=== PATIENT | female | born 1985 | race Caucasian/White ===

== ENCOUNTER → 2017-01-08 | Outpatient (CLI) | payer OTHER ==
[~2017-01-08] MED LIST: BACTRIM DS 8001 TA1 PO; BACTROBAN2% TP; BUSPAR15 MG PO; CELEXA20 MG PO; CIPRO500 MG PO; CIPROFLOXACIN500 MG PO; CLINDAMYCIN150 MG PO; CYMBALTA60 MG PO; DARVOCET N 1001 TAB PO; EFFEXOR XR75 M1 PO; FOLIC ACID; HYDROXYZINE10 MG PO; IRON; LEVOFLOXACIN500 MG PO; MENTAX TP; MOTRIN800 MG PO; NAPROSYN500 MG PO; NORCO 325 MG-51 TAB PO; PERCOCET 325 MG1 TA8 PO; PHENERGAN25 M1 PO; PRILOSEC40 M1 PO; Percocet 325 MG1 TAB PO; ROBAXIN500 MG; TRAMADOL HCL50 MG PO; VICODIN 5/500 505 MG PO; VITAMIN D; VITAMIN E; VOLTAREN50 M1 PO; WELLBUTRIN75 MG PO; Zofran4 MG PO
== END | disposition home or self-care (01) ==
LOC: LAB 13:42
DX: O92.6 Galactorrhea (principal)

== ENCOUNTER 2017-01-20 18:51 | Emergency (ER) | payer OTHER ==
[~2017-01-20] VITALS: Wt 79.8 kg
[2017-01-20] MEDS ORDERED: METHOCARBAMOL500 M1 PO (18:53)
[2017-01-20] MEDS ORDERED: ANAPROX DS550 MG PO (19:12)
== END 2017-01-20 19:29 | disposition home or self-care (01) ==
LOC: ED 18:51
DX: M25.561 Pain in right knee (principal); F17.200 Nicotine dependence, unspecified, uncomplicated; Z88.0 Allergy status to penicillin; Z88.1 Allergy status to other antibiotic agents; Z88.6 Allergy status to analgesic agent; Z90.49 Acquired absence of other specified parts of digestive tract; Z88.8 Allergy status to other drugs, medicaments and biological substances

== ENCOUNTER 2017-09-23 19:08 | Emergency (ER) | payer OTHER ==
[~2017-09-23] VITALS: Ht 157.4 cm; Wt 86.2 kg
[~2017-09-23 19:08] MED LIST changes: +ANAPROX DS550 MG PO; +METHOCARBAMOL500 M1 PO
[2017-09-23] MEDS ORDERED: MAXITROL OP (19:38)
[2017-09-23 19:43] LABS: BASO % 0.5 % (0.0-1.0); EOS # 0.1 10*3/uL (0.0-0.4); EOS % 1.5 % (1.0-4.0); HEMATOCRIT 38.9 % (37.0-47.0); HEMOGLOBIN 13.2 g/dl (12.0-16.0); LYMPH # 2.4 10*3/uL (1.3-4.4); LYMPH % 30.3 % (27.0-41.0); MEAN CELL VOLUME 92.6 fl (81.0-99.0); MEAN CORPUSCULAR HGB 31.4 pg (27.0-31.0); MEAN CORPUSCULAR HGB CONC 33.9 g/dl (33.0-37.0); MEAN PLATELET VOLUME 10.2 fl (9.6-12.3); MONO # 0.5 10*3/uL (0.1-1.0); MONO % 6.3 % (3.0-9.0); NEUT # 4.9 10*3/uL (2.3-7.9); NEUT % 61.1 % (47.0-73.0); PLATELET COUNT AUTOMATED 231 10*3/uL (130-400); RED CELL DISTRI WIDTH 12.3 % (0-14.5)
[2017-09-23 19:52] LABS: ACT PARTIAL THROMBO TIME 25.3 SECONDS (20.8-31.5)
[2017-09-23 20:06] LABS: ALBUMIN 4.1 gm/dl (3.1-4.5); ALKALINE PHOSPHATASE 72 U/L (45-117); BUN 12 mg/dl (7-24); CHLORIDE 106 mmol/L (98-107); CREATININE 0.84 mg/dL (0.55-1.02); POTASSIUM 3.4 mmol/L (3.5-5.1); SGOT/AST 16 IU/L (3-35); SGPT/ALT 25 U/L (12-78); SODIUM 139 mmol/L (136-145); TOTAL PROTEIN 7.6 gm/dL (6.4-8.2)
[2017-09-23 20:10] LABS: TROPONIN I < 0.015 ng/ml (<0.045)
== END 2017-09-23 22:22 | disposition home or self-care (01) ==
LOC: ED 19:08
PROVIDERS: Student in an Organized Health Care Education/Training Program
DX: R51 Headache (principal); R07.89 Other chest pain; R06.02 Shortness of breath; F17.200 Nicotine dependence, unspecified, uncomplicated; Z88.1 Allergy status to other antibiotic agents; Z79.899 Other long term (current) drug therapy; Z88.6 Allergy status to analgesic agent; Z88.0 Allergy status to penicillin

== ENCOUNTER 2017-10-23 23:21 | Emergency (ER) | payer OTHER ==
[~2017-10-23] VITALS: Ht 157.4 cm; Wt 88.0 kg
[~2017-10-23 23:21] MED LIST changes: +MAXITROL OP
[2017-10-24 01:05] LABS: BASO # 0.1 10*3/uL (0.0-0.1); BASO % 0.5 % (0.0-1.0); EOS # 0.3 10*3/uL (0.0-0.4); EOS % 2.5 % (1.0-4.0); HEMATOCRIT 36.5 % (37.0-47.0); HEMOGLOBIN 12.5 g/dl (12.0-16.0); LYMPH # 2.7 10*3/uL (1.3-4.4); LYMPH % 26.2 % (27.0-41.0); MEAN CELL VOLUME 92.4 fl (81.0-99.0); MEAN CORPUSCULAR HGB 31.6 pg (27.0-31.0); MEAN CORPUSCULAR HGB CONC 34.2 g/dl (33.0-37.0); MEAN PLATELET VOLUME 10.3 fl (9.6-12.3); MONO # 0.7 10*3/uL (0.1-1.0); MONO % 7.2 % (3.0-9.0); NEUT # 6.4 10*3/uL (2.3-7.9); NEUT % 63.4 % (47.0-73.0); PLATELET COUNT AUTOMATED 203 10*3/uL (130-400); RED BLOOD COUNT 3.95 10*6/uL (4.10-5.10); RED CELL DISTRI WIDTH 12.7 % (0-14.5); WHITE BLOOD COUNT 10.1 10*3/uL (4.8-10.8)
[2017-10-24] MEDS ORDERED: CLINDAMYCIN150 MG PO (01:24)
[2017-10-24] MEDS ORDERED: FLAGYL500 MG PO (01:24)
[2017-10-24] MEDS ORDERED: FLUCONAZOLE100 MG PO (01:24)
[2017-10-24] MEDS ORDERED: KETOROLAC10 MG PO (01:24)
== END 2017-10-24 01:47 | disposition home or self-care (01) ==
LOC: ED 23:21
PROVIDERS: Emergency Medicine Emergency Medical Services
DX: N76.0 Acute vaginitis (principal); R10.2 Pelvic and perineal pain; Z88.1 Allergy status to other antibiotic agents; Z88.0 Allergy status to penicillin; Z88.6 Allergy status to analgesic agent

== ENCOUNTER 2017-10-28 19:46 | Emergency (ER) | payer OTHER ==
[~2017-10-28] VITALS: Ht 157.4 cm; Wt 87.5 kg
[~2017-10-28 19:46] MED LIST changes: +FLAGYL500 MG PO; +FLUCONAZOLE100 MG PO; +KETOROLAC10 MG PO
[2017-10-28] MEDS ORDERED: CLINDAMYCIN PHO40 GM V (20:36)
[2017-10-28] MEDS ORDERED: METRONIDAZOLE70 GM V (20:36)
[2017-10-28] MEDS ORDERED: Zofran4 MG SL (20:53)
== END 2017-10-28 20:47 | disposition home or self-care (01) ==
LOC: ED 19:46
DX: R11.2 Nausea with vomiting, unspecified (principal); N76.0 Acute vaginitis; B96.89 Other specified bacterial agents as the cause of diseases classified elsewhere; Z98.890 Other specified postprocedural states; Z90.49 Acquired absence of other specified parts of digestive tract; Z79.899 Other long term (current) drug therapy; Z88.3 Allergy status to other anti-infective agents; Z88.5 Allergy status to narcotic agent; Z88.6 Allergy status to analgesic agent; Z88.1 Allergy status to other antibiotic agents; Z88.0 Allergy status to penicillin

== ENCOUNTER 2018-01-06 17:55 | Emergency (ER) | payer OTHER ==
[~2018-01-06] VITALS: Ht 157.4 cm; Wt 87.5 kg
[~2018-01-06 17:55] MED LIST changes: +CLINDAMYCIN PHO40 GM V; +METRONIDAZOLE70 GM V; +Zofran4 MG SL
[2018-01-06] MEDS ORDERED: ZOFRAN ODT4 MG SL (18:13)
[2018-01-06] MEDS ORDERED: FLUCONAZOLE100 MG PO (18:13)
[2018-01-06] MEDS ORDERED: SEPTDS PO (18:13)
== END 2018-01-06 18:17 | disposition home or self-care (01) ==
LOC: ED 17:55
DX: L81.8 Other specified disorders of pigmentation (principal); L08.9 Local infection of the skin and subcutaneous tissue, unspecified; Z98.890 Other specified postprocedural states; Z88.5 Allergy status to narcotic agent; Z88.1 Allergy status to other antibiotic agents; Z88.6 Allergy status to analgesic agent; Z88.0 Allergy status to penicillin

== ENCOUNTER 2018-07-14 12:43 | Emergency (ER) | payer OTHER ==
[~2018-07-14] VITALS: Ht 157.4 cm; Wt 86.2 kg
[~2018-07-14 12:43] MED LIST changes: +DIFLUCAN150 MG PO; +PREDNISONE20 M1 PO; +PROVENTIL HFA6.7 GM INH; +SEPTDS PO; +TESSALON PERLE100 M1 PO; +ZITHROMAX250 MG PO; +ZOFRAN ODT4 MG SL
[2018-07-14] MEDS ORDERED: TESSALON PERLE100 M1 PO (14:38)
[2018-07-14] MEDS ORDERED: PREDNISONE20 M1 PO (14:38)
[2018-07-14] MEDS ORDERED: PROVENTIL HFA6.7 GM INH (14:38)
== END 2018-07-14 14:43 | disposition home or self-care (01) ==
LOC: ED 12:43
DX: J45.909 Unspecified asthma, uncomplicated (principal); F17.200 Nicotine dependence, unspecified, uncomplicated; Z88.1 Allergy status to other antibiotic agents; Z88.8 Allergy status to other drugs, medicaments and biological substances; Z88.6 Allergy status to analgesic agent; Z88.0 Allergy status to penicillin; Z88.5 Allergy status to narcotic agent; Z79.2 Long term (current) use of antibiotics; Z79.899 Other long term (current) drug therapy

== ENCOUNTER 2018-08-26 18:02 | Emergency (ER) | payer OTHER ==
[~2018-08-26] VITALS: Ht 157.4 cm; Wt 86.2 kg
[2018-08-26 18:25] LABS: BASO # 0.1 10*3/uL (0.0-0.1); BASO % 0.6 % (0.0-1.0); EOS # 0.2 10*3/uL (0.0-0.4); EOS % 2.2 % (1.0-4.0); HEMATOCRIT 39.7 % (37.0-47.0); HEMOGLOBIN 13.1 g/dl (12.0-16.0); LYMPH # 2.2 10*3/uL (1.3-4.4); LYMPH % 25.4 % (27.0-41.0); MEAN CELL VOLUME 97.3 fl (81.0-99.0); MEAN CORPUSCULAR HGB 32.1 pg (27.0-31.0); MEAN PLATELET VOLUME 10.2 fl (9.6-12.3); MONO # 0.6 10*3/uL (0.1-1.0); MONO % 7.1 % (3.0-9.0); NEUT # 5.5 10*3/uL (2.3-7.9); NEUT % 64.3 % (47.0-73.0); PLATELET COUNT AUTOMATED 271 10*3/uL (130-400); RED BLOOD COUNT 4.08 10*6/uL (4.10-5.10); RED CELL DISTRI WIDTH 12.5 % (0-14.5); WHITE BLOOD COUNT 8.5 10*3/uL (4.8-10.8)
[2018-08-26 18:32] LABS: BILIRUBIN NEGATIVE (NEGATIVE); BLOOD 3+ (NEGATIVE); CLARITY SL CLOUDY (CLEAR); COLOR YELLOW (YELLOW); GLUCOSE NEGATIVE (NEGATIVE); KETONE NEGATIVE (NEGATIVE); LEUKO ESTERASE NEGATIVE (NEGATIVE); NITRITE NEGATIVE (NEGATIVE); SPECIFIC GRAVITY >= 1.030 (1.005-1.030); UROBILINOGEN 0.2 E.U./dl (0.2-1.0)
[2018-08-26 18:39] LABS: ALBUMIN 3.8 gm/dl (3.1-4.5); ALKALINE PHOSPHATASE 84 U/L (45-117); BUN 14 mg/dl (7-24); CHLORIDE 110 mmol/L (98-107); POTASSIUM 3.9 mmol/L (3.5-5.1); SGOT/AST 17 IU/L (3-35); SGPT/ALT 35 U/L (12-78); SODIUM 141 mmol/L (136-145); TOTAL PROTEIN 7.3 gm/dL (6.4-8.2)
[2018-08-26 18:45] LABS: BACTERIA 1+; RBC 16-20 rbc/hpf (0-2); WBC 0-2 wbc/hpf (0-5)
[2018-08-26] MEDS ORDERED: ZOFRAN4 MG PO (20:06)
[2018-08-26] MEDS ORDERED: NAPROSYN500 MG PO (20:06)
[2018-10-15] MEDS ORDERED: 'CLONIDINE0.1 MG PO (13:14)
[2018-10-15] MEDS ORDERED: COMBIVENT RESPIM4 GM INH (18:11)
[2018-10-16] MEDS ORDERED: PREDNISONE50 MG PO (15:50)
== END 2018-08-26 20:15 | disposition home or self-care (01) ==
LOC: ED 18:02
PROVIDERS: Nurse Practitioner Family
DX: R10.9 Unspecified abdominal pain (principal); R31.9 Hematuria, unspecified; Z88.1 Allergy status to other antibiotic agents; Z88.0 Allergy status to penicillin; Z88.6 Allergy status to analgesic agent

== ENCOUNTER 2018-10-21 18:28 | Emergency (ER) | payer OTHER ==
[~2018-10-21] VITALS: Ht 157.4 cm; Wt 90.7 kg
--- NOTE | ~2018-10-21 | EKG ---
[place], [place] ELECTROCARDIOGRAM REPORT NAME: JHON COLES UNIT #: [id number] ROOM: DOCTOR: EPIPHANY DRAFT REPORT BIRTHDATE: [birth year] [facility] Test Date: 2018-10-21 Test Time: 19:48:52 Pat Name: JHON COLES Department: ER Room: 1 Gender: F Metallurgical Tester: EKG.WV : 1985 Requested By: MIRNA ANN Order Number: [id number] Reading MD: Hernandez Moreno MD Measurements Intervals [place] Rate: 107 P: 51 MI: 148 QRS: 14 QRSD: 78 T: 14 QT: 321 QTc: 429 Interpretive Statements Sinus tachycardia Consider right atrial enlargement Baseline wander in lead(s) V3,V4,V5 Compared to ECG 10/16/2018 09:47:18 Inferior Q waves no longer present Q waves no longer present ST (T wave) deviation no longer present Electronically Signed On 10-23-2018 11:28:54 PDT by Hernandez Moreno MD CM:EKGRPT:ELECTROCARDIOGRAM REPORT [id number] MIRNA ANN EPIPHANY DRAFT REPORT MIRNA ANN
[~2018-10-21 18:28] MED LIST changes: +'CLONIDINE0.1 MG PO; +COMBIVENT RESPIM4 GM INH; +PREDNISONE50 MG PO; +ZOFRAN4 MG PO
[2018-10-21 20:08] LABS: HEMOGLOBIN 14.5 g/dl (12.0-16.0); MEAN CELL VOLUME 96.2 fl (81.0-99.0); MEAN CORPUSCULAR HGB 32.4 pg (27.0-31.0); MEAN CORPUSCULAR HGB CONC 33.7 g/dl (33.0-37.0); MEAN PLATELET VOLUME 9.6 fl (9.6-12.3); PLATELET COUNT AUTOMATED 294 10*3/uL (130-400); RED BLOOD COUNT 4.47 10*6/uL (4.10-5.10); RED CELL DISTRI WIDTH 12.9 % (0-14.5); WHITE BLOOD COUNT 16.8 10*3/uL (4.8-10.8)
[2018-10-21 20:17] LABS: ACT PARTIAL THROMBO TIME 23.3 SECONDS (20.8-31.5); INTERNATIONAL NORM RATIO 0.9 (2.0-3.5)
[2018-10-21 20:28] LABS: ATYPICAL LYMPHS 1 % (0-0); TOTAL CELLS COUNTED 100 #CELLS
[2018-10-21 20:30] LABS: PLATELET SUFFICIENCY NORMAL (NORMAL); POLYCHROMASIA SLIGHT
[2018-10-21 20:34] LABS: ALBUMIN 4.2 gm/dl (3.1-4.5); ALKALINE PHOSPHATASE 81 U/L (45-117); BUN 13 mg/dl (7-24); CHLORIDE 103 mmol/L (98-107); CREATININE 0.79 mg/dL (0.55-1.02); LIPASE 128 U/L (73-393); POTASSIUM 4.2 mmol/L (3.5-5.1); SGOT/AST 17 IU/L (3-35); SGPT/ALT 70 U/L (12-78); SODIUM 136 mmol/L (136-145); TOTAL PROTEIN 7.9 gm/dL (6.4-8.2)
[2018-10-21 20:39] LABS: TROPONIN I < 0.015 ng/ml (<0.045)
== END 2018-10-22 01:58 | disposition home or self-care (01) ==
LOC: ED 18:28
PROVIDERS: Nurse Practitioner Family
DX: J45.909 Unspecified asthma, uncomplicated (principal); R51 Headache; I10 Essential (primary) hypertension; F17.200 Nicotine dependence, unspecified, uncomplicated; Z88.0 Allergy status to penicillin; Z88.1 Allergy status to other antibiotic agents; Z88.6 Allergy status to analgesic agent; Z88.8 Allergy status to other drugs, medicaments and biological substances

== ENCOUNTER 2018-10-24 12:15 | Inpatient (IN) | payer OTHER ==
[2018-10-24] VITALS (9 sets, daily range): BP systolic 130–150; BP diastolic 79–109
[~2018-10-24] VITALS: Ht 157.4 cm; Wt 91.6 kg
--- NOTE | ~2018-10-24 | EKG ---
[place], [place] ELECTROCARDIOGRAM REPORT NAME: JHON COLES UNIT #: [id number] ROOM: 427 DOCTOR: MATHEUS DRAFT REPORT BIRTHDATE: [birth year] [facility] Test Date: 2018-10-24 Test Time: 15:36:36 Pat Name: JHON COLES Department: Room: 427 Gender: F Hog Grader: Hafsa Hammer : 1985 Requested By: KACY PEREZ Order Number: [id number] Reading MD: Bindu Acosta Measurements Intervals [place] Rate: 94 P: 60 SD: 144 QRS: 33 QRSD: 82 T: 19 QT: 357 QTc: 447 Interpretive Statements Sinus rhythm Abnormal inferior Q waves Compared to ECG 10/21/2018 19:48:52 Inferior Q waves now present Q waves now present Sinus tachycardia no longer present Electronically Signed On 10-26-2018 11:02:24 PDT by Bindu Acosta CM:EKGRPT:ELECTROCARDIOGRAM REPORT [id number] KACY ELKINS DRAFT REPORT KACY PEREZ DO
--- NOTE | ~2018-10-24 | CON ---
[place], [place] REPORT OF CONSULTATION NAME: JHON COLES [facility] #: [id number] UNIT #: [id number] ROOM: 427 DOCTOR: EBONI NY MD BIRTHDATE: [birth year] DOS: 10/26/2018 REASON FOR CONSULTATION: Chest pain. HISTORY OF PRESENT ILLNESS: The patient is 33-year-old patient with a history of asthma, MTHFR gene mutation, presented to the Emergency Room with chest pain and headache. She had a blood pressure of 158/110. She was recently discharged from [facility] about a week ago for similar complaints. The patient never had complete relief of her chest pain or headache since her discharge. She described the pain as intermittent pain, pressure-like sensation in the midsternal area, sometimes worse with breathing, sometimes worse with walking. No associated symptoms. There is no radiation of this pain. This is more or less constant pain. She also had this headache in the front and back of her head and she was scheduled to see a neurologist in 12/2018. She also had mild shortness of breath, but no palpitation or dizziness. No PND, no orthopnea, no palpitations. She also had occasional numbness sensation near her face and behind the right eye and has also had some neuropathy in both feet. Cardiology consulted for further recommendation for her chest pain. At the time of my examination, the patient is alert, oriented, no acute distress. Denies any chest pain or shortness of breath. No palpitations or dizziness. She denies any nausea, vomiting, or diarrhea. No bladder or bowel symptoms. REVIEW OF SYSTEMS: Review of the 10 system negative except as mentioned above. PAST MEDICAL HISTORY: 1. Asthma. 2. Hypertension. 3. Non-morbid obesity. 4. Headache. 5. MTHFR gene mutation. 6. Depression. PAST SURGICAL HISTORY: History of tonsillectomy, appendectomy, , cholecystectomy, and tubal ligation. SOCIAL HISTORY: The patient does not drink, does not use illicit drugs. The patient does smoke, but quit about 2 weeks ago. FAMILY HISTORY: Father living healthy and the mother had history of multiple DVTs. ALLERGIES: The patient has multiple drug allergies reviewed. HOME MEDICATIONS: Reviewed. PHYSICAL EXAMINATION: VITAL SIGNS: Blood pressure 110/71, pulse 94, respiration 20. Weight 91.6 kilos, BMI of 37. GENERAL: Alert, comfortable, in no acute distress. NECK: Neck supple, no distended neck veins, no carotid bruit. [place], [place] REPORT OF CONSULTATION NAME: JHON COLES UNIT #: [id number] ROOM: [facility] DOCTOR: EBONI NY MD BIRTHDATE: [birth year] HEENT: Pupils are equal, no jaundice. Tongue was moist and pharynx clear. CHEST: Symmetrical. The patient had mild tenderness on pressure over the midsternal area. LUNGS: Clear to auscultation bilaterally. HEART: Regular rhythm, no S3, no palpable thrills. ABDOMEN: Benign, nontender. Bowel sounds normal. EXTREMITIES: No edema. Distal pulses palpable. SKIN: Warm and dry. No cyanosis, no clubbing. RECTAL: Deferred. GENITOURINARY: Deferred. NEUROLOGIC: The patient is alert, oriented. No focal deficit. PSYCHIATRIC: The patient was alert with good mood and affect. REVIEW OF THE DIAGNOSTIC TESTS: EKG shows sinus rhythm, sinus tachycardia, no acute ischemic changes. CBC, chemistry and cardiac enzymes reviewed. Cardiac troponins are negative x 2. Magnesium level was normal. CBC, BMP unremarkable. IMPRESSION: 1. Chest pain, atypical, myocardial infarction ruled out. 2. ____ hypertension. 3. Tobacco smoking, quit 2 weeks ago. 4. MTHFR mutation. 5. History of asthma. 6. Headaches. RECOMMENDATIONS: 1. Chest pain is atypical and EKG, cardiac is unremarkable. 2. Scheduled for the plain treadmill stress test due to her recurrent chest pains. 3. Check 2D echo for LV function and valvular function due to her chest pain, shortness of breath to rule out any pericarditis or pericardial effusion. 4. Risk factor modification for diet, exercise, weight loss as well as continue to quit smoking discussed. 5. She will follow with her family physician for her noncardiac symptoms. 6. No family at bedside at the time of my examination. EBONI NY MD CM:CONSTR:REPORT OF CONSULTATION 99 11/13/1812 interface
--- NOTE | ~2018-10-24 | EKG ---
[place], [place] ELECTROCARDIOGRAM REPORT NAME: JHON COLES UNIT #: [id number] ROOM: 427 DOCTOR: MATHEUS DRAFT REPORT BIRTHDATE: [birth year] [facility] Test Date: 2018-10-24 Test Time: 12:28:25 Pat Name: JHON COLES Department: Room: 427 Gender: F Keyboarding Teacher: Hafsa Hammer : 1985 Requested By: KACY PEREZ Order Number: [id number] Reading MD: Bindu Acosta Measurements Intervals [place] Rate: 101 P: 65 [place]: 146 QRS: 41 QRSD: 81 T: 24 QT: 342 QTc: 444 Interpretive Statements Sinus tachycardia Baseline wander in lead(s) V1,V6 Compared to ECG 10/21/2018 19:48:52 No significant changes Electronically Signed On 10-26-2018 11:00:53 PDT by Bindu Acosta CM:EKGRPT:ELECTROCARDIOGRAM REPORT [id number] KACY ELKINS DRAFT REPORT KACY PEREZ DO
--- NOTE | ~2018-10-24 | EKG ---
[place], [place] ELECTROCARDIOGRAM REPORT NAME: JHON COLES UNIT #: [id number] ROOM: 427 DOCTOR: MATHEUS DRAFT REPORT BIRTHDATE: [birth year] [facility] Test Date: 2018-10-26 Test Time: 03:20:50 Pat Name: JHON COLES Department: Room: 427 1 Gender: F Aids Counselor: Jerri Awad : 1985 Requested By: POPPY SZYMANSKI Order Number: [id number] Reading MD: Chel Cao MD Measurements Intervals [place] Rate: 86 P: 69 HI: 152 QRS: 63 QRSD: 87 T: 30 QT: 372 QTc: 445 Interpretive Statements Sinus rhythm Compared to ECG 10/21/2018 19:48:52 Sinus tachycardia no longer present Electronically Signed On 10-27-2018 9:18:12 PDT by Chel Cao MD CM:EKGRPT:ELECTROCARDIOGRAM REPORT [id number] POPPY ELKINS DRAFT REPORT POPPY SZYMANSKI DO
--- NOTE | ~2018-10-24 | EKG ---
[place], [place] ELECTROCARDIOGRAM REPORT NAME: JHON COLES UNIT #: [id number] ROOM: 427 DOCTOR: MATHEUS DRAFT REPORT BIRTHDATE: [birth year] [facility] Test Date: 2018-10-25 Test Time: 04:47:57 Pat Name: JHON COLES Department: Room: 427 1 Gender: F Product Marketing Consultant: Jaime Lee : 1985 Requested By: TEETEE BALL Order Number: [id number] Reading MD: Bindu Acosta Measurements Intervals [place] Rate: 100 P: 55 HI: 152 QRS: 32 QRSD: 84 T: 23 QT: 354 QTc: 457 Interpretive Statements Sinus tachycardia Compared to ECG 10/21/2018 19:48:52 No significant changes Electronically Signed On 10-26-2018 11:05:08 PDT by Bindu Acosta CM:EKGRPT:ELECTROCARDIOGRAM REPORT [id number] TEETEE ELKINS DRAFT REPORT TEETEE BALL DO
[2018-10-24 13:10] LABS: BASO % 0.2 % (0.0-1.0); EOS # 0.1 10*3/uL (0.0-0.4); EOS % 1.1 % (1.0-4.0); HEMATOCRIT 39.4 % (37.0-47.0); HEMOGLOBIN 13.2 g/dl (12.0-16.0); LYMPH # 1.5 10*3/uL (1.3-4.4); LYMPH % 13.5 % (27.0-41.0); MEAN CORPUSCULAR HGB 32.5 pg (27.0-31.0); MEAN CORPUSCULAR HGB CONC 33.5 g/dl (33.0-37.0); MEAN PLATELET VOLUME 9.3 fl (9.6-12.3); MONO # 0.7 10*3/uL (0.1-1.0); MONO % 6.7 % (3.0-9.0); NEUT # 8.6 10*3/uL (2.3-7.9); PLATELET COUNT AUTOMATED 223 10*3/uL (130-400); RED BLOOD COUNT 4.06 10*6/uL (4.10-5.10)
[2018-10-24 13:27] LABS: ACT PARTIAL THROMBO TIME 23.1 SECONDS (20.8-31.5); INTERNATIONAL NORM RATIO 0.9 (2.0-3.5)
[2018-10-24 13:34] LABS: ALBUMIN 3.6 gm/dl (3.1-4.5); ALKALINE PHOSPHATASE 65 U/L (45-117); BUN 13 mg/dl (7-24); CHLORIDE 108 mmol/L (98-107); CREATININE 0.66 mg/dL (0.55-1.02); LIPASE 114 U/L (73-393); SGOT/AST 13 IU/L (3-35); SGPT/ALT 47 U/L (12-78); SODIUM 140 mmol/L (136-145); TOTAL PROTEIN 6.8 gm/dL (6.4-8.2)
[2018-10-24 13:41] LABS: BETA-HCG, QUANT < 1.0 mIU/mL (1-3); TROPONIN I < 0.015 ng/ml (<0.045)
[2018-10-25] VITALS: BP 126/75
[2018-10-25] MEDS ORDERED: ARTHROTEC50 MG PO (01:33)
[2018-10-25 04:00] VITALS: BP 148/109
[2018-10-25 07:22] LABS: HEMOGLOBIN 13.5 g/dl (12.0-16.0); MEAN CELL VOLUME 95.2 fl (81.0-99.0); MEAN CORPUSCULAR HGB 32.1 pg (27.0-31.0); MEAN CORPUSCULAR HGB CONC 33.8 g/dl (33.0-37.0); PLATELET COUNT AUTOMATED 255 10*3/uL (130-400); RED CELL DISTRI WIDTH 12.5 % (0-14.5)
[2018-10-25 07:49] LABS: CHLORIDE 106 mmol/L (98-107); POTASSIUM 4.2 mmol/L (3.5-5.1); SODIUM 137 mmol/L (136-145)
[2018-10-25 07:52] LABS: BUN 10 mg/dl (7-24); PHOSPHOROUS 2.3 mg/dL (2.5-4.9)
[2018-10-25 07:56] LABS: ATYPICAL LYMPHS 1 % (0-0); PLATELET SUFFICIENCY NORMAL (NORMAL); TOTAL CELLS COUNTED 100 #CELLS
[2018-10-25 08:00] VITALS: BP 126/68
[2018-10-25 12:00] VITALS: BP 118/67
[2018-10-25 16:00] VITALS: BP 136/92
[2018-10-25 20:00] VITALS: BP 104/56
[2018-10-26] VITALS: BP 129/57
[2018-10-26 03:17] LABS: BASO % 0.3 % (0.0-1.0); EOS # 0.1 10*3/uL (0.0-0.4); EOS % 0.4 % (1.0-4.0); HEMATOCRIT 37.9 % (37.0-47.0); HEMOGLOBIN 12.3 g/dl (12.0-16.0); LYMPH # 2.9 10*3/uL (1.3-4.4); LYMPH % 25.2 % (27.0-41.0); MEAN CORPUSCULAR HGB 32.2 pg (27.0-31.0); MEAN CORPUSCULAR HGB CONC 32.5 g/dl (33.0-37.0); MEAN PLATELET VOLUME 9.5 fl (9.6-12.3); MONO # 0.7 10*3/uL (0.1-1.0); MONO % 6.3 % (3.0-9.0); NEUT # 7.8 10*3/uL (2.3-7.9); NEUT % 67.3 % (47.0-73.0); PLATELET COUNT AUTOMATED 210 10*3/uL (130-400); RED BLOOD COUNT 3.82 10*6/uL (4.10-5.10); RED CELL DISTRI WIDTH 13.1 % (0-14.5); WHITE BLOOD COUNT 11.5 10*3/uL (4.8-10.8)
[2018-10-26 03:34] LABS: MEAN CELL VOLUME 99.2 fl (81.0-99.0)
[2018-10-26 03:44] LABS: BUN 18 mg/dl (7-24); CHLORIDE 109 mmol/L (98-107); CREATININE 0.72 mg/dL (0.55-1.02); PHOSPHOROUS 4.2 mg/dL (2.5-4.9); POTASSIUM 4.1 mmol/L (3.5-5.1); SODIUM 142 mmol/L (136-145)
[2018-10-26 08:00] VITALS: BP 126/78
[2018-10-26 12:00] VITALS: BP 110/71
[2018-10-26 16:00] VITALS: BP 99/58
[2018-10-26 20:00] VITALS: BP 126/73
[2018-10-27] VITALS: BP 111/59
[2018-10-27 07:07] LABS: BASO % 0.4 % (0.0-1.0); EOS # 0.1 10*3/uL (0.0-0.4); EOS % 1.2 % (1.0-4.0); HEMATOCRIT 36.1 % (37.0-47.0); HEMOGLOBIN 11.6 g/dl (12.0-16.0); LYMPH # 2.4 10*3/uL (1.3-4.4); LYMPH % 28.1 % (27.0-41.0); MEAN CELL VOLUME 99.7 fl (81.0-99.0); MEAN CORPUSCULAR HGB CONC 32.1 g/dl (33.0-37.0); MEAN PLATELET VOLUME 9.9 fl (9.6-12.3); MONO # 0.6 10*3/uL (0.1-1.0); MONO % 7.5 % (3.0-9.0); NEUT # 5.3 10*3/uL (2.3-7.9); NEUT % 62.2 % (47.0-73.0); PLATELET COUNT AUTOMATED 199 10*3/uL (130-400); RED BLOOD COUNT 3.62 10*6/uL (4.10-5.10); WHITE BLOOD COUNT 8.6 10*3/uL (4.8-10.8)
[2018-10-27 07:28] LABS: CHLORIDE 108 mmol/L (98-107); POTASSIUM 4.1 mmol/L (3.5-5.1); SODIUM 143 mmol/L (136-145)
[2018-10-27 07:32] LABS: BUN 16 mg/dl (7-24); CREATININE 0.72 mg/dL (0.55-1.02)
[2018-10-27 08:00] VITALS: BP 121/69
[2018-10-27 12:00] VITALS: BP 132/88
[2018-10-27 16:00] VITALS: BP 109/75
== END 2018-10-27 20:07 | disposition home or self-care (01) | DRG 194 ==
LOC: ED 12:15 → EDHOLD 20:38 → 4E 20:38
PROVIDERS: Emergency Medicine; Internal Medicine; Student in an Organized Health Care Education/Training Program; ADMIT Internal Medicine
PROC: 4A02XM4 Measurement of Cardiac Total Activity, External Approach (ICD-10-PCS; principal; 2018-10-27)
PROC: 3E073KZ Introduction of Other Diagnostic Substance into Coronary Artery, Percutaneous Approach (ICD-10-PCS; 2018-10-27)
DX: R09.1 Pleurisy (principal); R65.10 Systemic inflammatory response syndrome (SIRS) of non-infectious origin without acute organ dysfunction; D68.52 Prothrombin gene mutation; E72.12 Methylenetetrahydrofolate reductase deficiency; R07.89 Other chest pain; J45.909 Unspecified asthma, uncomplicated; F32.9 Major depressive disorder, single episode, unspecified; E87.8 Other disorders of electrolyte and fluid balance, not elsewhere classified; E83.41 Hypermagnesemia; E83.39 Other disorders of phosphorus metabolism; D72.829 Elevated white blood cell count, unspecified; D72.810 Lymphocytopenia; E66.9 Obesity, unspecified; F41.9 Anxiety disorder, unspecified; R73.9 Hyperglycemia, unspecified; I10 Essential (primary) hypertension; Z88.8 Allergy status to other drugs, medicaments and biological substances; R00.0 Tachycardia, unspecified; R06.82 Tachypnea, not elsewhere classified; E87.6 Hypokalemia; Z87.891 Personal history of nicotine dependence; Z90.49 Acquired absence of other specified parts of digestive tract; Z90.710 Acquired absence of both cervix and uterus; Z98.51 Tubal ligation status; Z88.0 Allergy status to penicillin; Z88.1 Allergy status to other antibiotic agents; Z88.9 Allergy status to unspecified drugs, medicaments and biological substances; Z68.36 Body mass index [BMI] 36.0-36.9, adult

== ENCOUNTER 2019-05-11 15:53 | Emergency (ER) | payer OTHER ==
[~2019-05-11] VITALS: Ht 157.4 cm; Wt 81.6 kg
--- NOTE | ~2019-05-11 | EKG ---
[place], [place] ELECTROCARDIOGRAM REPORT NAME: JHON COLES UNIT #: [id number] ROOM: DOCTOR: MATHEUS DRAFT REPORT BIRTHDATE: [birth year] [facility] Test Date: 2019-05-11 Test Time: 19:19:28 Pat Name: JHON COLES Department: Room: Gender: F Leaf Coverer: : 1985 Requested By: KAILEY CRUZ Order Number: [id number] Reading MD: Alex Galeana MD Measurements Intervals [place] Rate: 61 P: [place]: QRS: 56 QRSD: 89 T: 35 QT: 434 QTc: 438 Interpretive Statements Sinus rhythm Compared to ECG 10/26/2018 03:20:50 Sinus rhythm is still present Electronically Signed On 05-14-2019 15:49:30 PDT by Alex Galeana MD CM:EKGRPT:ELECTROCARDIOGRAM REPORT [id number] KAILEY JARVIS DRAFT REPORT KAILEY CRUZ MD
--- NOTE | ~2019-05-11 | EKG ---
[place], [place] ELECTROCARDIOGRAM REPORT NAME: JHON COLES UNIT #: [id number] ROOM: DOCTOR: MATHEUS DRAFT REPORT BIRTHDATE: [birth year] [facility] Test Date: 2019-05-11 Test Time: 16:02:29 Pat Name: JHON COLES Department: Room: Gender: F Cable Splicing Technician: : 1985 Requested By: KAILEY CRUZ Order Number: [id number] Reading MD: Alex Galeana MD Measurements Intervals [place] Rate: 63 P: 63 IN: 180 QRS: 52 QRSD: 75 T: 35 QT: 410 QTc: 420 Interpretive Statements Sinus rhythm Probable left atrial enlargement Compared to ECG 10/26/2018 03:20:50 No significant changes Electronically Signed On 05-14-2019 15:48:44 PDT by Alex Galeana MD CM:EKGRPT:ELECTROCARDIOGRAM REPORT [id number] KAILEY JARVIS DRAFT REPORT KAILEY CRUZ MD
[~2019-05-11 15:53] MED LIST changes: +ARTHROTEC50 MG PO
[2019-05-11 16:18] LABS: BASO % 0.4 % (0.0-1.0); EOS # 0.2 10*3/uL (0.0-0.4); EOS % 3.5 % (1.0-4.0); HEMATOCRIT 35.6 % (37.0-47.0); HEMOGLOBIN 11.9 g/dl (12.0-16.0); LYMPH # 1.7 10*3/uL (1.3-4.4); MEAN CORPUSCULAR HGB 32.4 pg (27.0-31.0); MEAN CORPUSCULAR HGB CONC 33.4 g/dl (33.0-37.0); MEAN PLATELET VOLUME 10.8 fl (9.6-12.3); MONO # 0.5 10*3/uL (0.1-1.0); MONO % 7.5 % (3.0-9.0); NEUT # 4.5 10*3/uL (2.3-7.9); NEUT % 64.3 % (47.0-73.0); PLATELET COUNT AUTOMATED 232 10*3/uL (130-400); RED BLOOD COUNT 3.67 10*6/uL (4.10-5.10); RED CELL DISTRI WIDTH 12.8 % (0-14.5); WHITE BLOOD COUNT 6.9 10*3/uL (4.8-10.8)
[2019-05-11 16:35] LABS: ACT PARTIAL THROMBO TIME 26.4 SECONDS (20.0-32.1); INTERNATIONAL NORM RATIO 0.9 (2.0-3.5)
[2019-05-11 16:36] LABS: ALBUMIN 3.4 gm/dl (3.1-4.5); BUN 11 mg/dl (7-24); CHLORIDE 111 mmol/L (98-107); CREATININE 0.58 mg/dL (0.55-1.02); POTASSIUM 3.6 mmol/L (3.5-5.1); SGOT/AST 17 IU/L (3-35); SGPT/ALT 31 U/L (12-78); SODIUM 140 mmol/L (136-145); TOTAL PROTEIN 6.2 gm/dL (6.4-8.2)
[2019-05-11 16:38] LABS: ALKALINE PHOSPHATASE 62 U/L (45-117)
[2019-05-11 16:39] LABS: TROPONIN I < 0.015 ng/ml (<0.045)
== END 2019-05-11 20:13 | disposition home or self-care (01) ==
LOC: ED 15:53
PROVIDERS: Emergency Medicine
DX: G89.29 Other chronic pain (principal); M54.5 Low back pain; R07.89 Other chest pain; R20.0 Anesthesia of skin; R39.15 Urgency of urination; F17.200 Nicotine dependence, unspecified, uncomplicated; Z90.49 Acquired absence of other specified parts of digestive tract; Z88.1 Allergy status to other antibiotic agents; Z88.8 Allergy status to other drugs, medicaments and biological substances; Z88.5 Allergy status to narcotic agent; Z88.0 Allergy status to penicillin; Z88.6 Allergy status to analgesic agent; Z79.899 Other long term (current) drug therapy

== ENCOUNTER 2019-05-24 21:21 | Emergency (ER) | payer OTHER ==
[~2019-05-24] VITALS: Wt 81.6 kg
[2019-05-24 22:48] LABS: BASO % 0.3 % (0.0-1.0); EOS # 0.3 10*3/uL (0.0-0.4); EOS % 3.6 % (1.0-4.0); HEMATOCRIT 36.7 % (37.0-47.0); HEMOGLOBIN 12.1 g/dl (12.0-16.0); LYMPH # 1.6 10*3/uL (1.3-4.4); LYMPH % 18.4 % (27.0-41.0); MEAN PLATELET VOLUME 10.6 fl (9.6-12.3); MONO # 0.8 10*3/uL (0.1-1.0); MONO % 8.6 % (3.0-9.0); NEUT # 6.1 10*3/uL (2.3-7.9); NEUT % 68.9 % (47.0-73.0); PLATELET COUNT AUTOMATED 232 10*3/uL (130-400); RED BLOOD COUNT 3.67 10*6/uL (4.10-5.10); RED CELL DISTRI WIDTH 13.2 % (0-14.5); WHITE BLOOD COUNT 8.9 10*3/uL (4.8-10.8)
[2019-05-24 23:02] LABS: BILIRUBIN NEGATIVE (NEGATIVE); BLOOD 3+ (NEGATIVE); CLARITY SL CLOUDY (CLEAR); COLOR YELLOW (YELLOW); GLUCOSE NEGATIVE (NEGATIVE); KETONE TRACE (NEGATIVE); LEUKO ESTERASE TRACE (NEGATIVE); NITRITE POSITIVE (NEGATIVE); SPECIFIC GRAVITY >= 1.030 (1.005-1.030); UROBILINOGEN 0.2 E.U./dl (0.2-1.0)
[2019-05-24 23:02] LABS: ALBUMIN 3.5 gm/dl (3.1-4.5); ALKALINE PHOSPHATASE 62 U/L (45-117); BUN 16 mg/dl (7-24); CHLORIDE 114 mmol/L (98-107); CREATININE 0.75 mg/dL (0.55-1.02); POTASSIUM 3.7 mmol/L (3.5-5.1); SGOT/AST 18 IU/L (3-35); SGPT/ALT 37 U/L (12-78); SODIUM 144 mmol/L (136-145); TOTAL PROTEIN 6.6 gm/dL (6.4-8.2)
[2019-05-24 23:16] LABS: RBC TNTC rbc/hpf (0-2)
[2019-05-24 23:17] LABS: BACTERIA TRACE; EPITHELIAL CELLS 40-45
[2019-05-25] MEDS ORDERED: LEVOFLOXACIN500 MG PO (00:21)
[2019-05-25] MEDS ORDERED: DIFLUCAN150 MG PO (00:21)
== END 2019-05-25 00:42 | disposition home or self-care (01) ==
LOC: ED 21:21
PROVIDERS: Emergency Medicine
DX: N39.0 Urinary tract infection, site not specified (principal); R42 Dizziness and giddiness; R51 Headache; J45.909 Unspecified asthma, uncomplicated; I10 Essential (primary) hypertension; E66.9 Obesity, unspecified; F17.200 Nicotine dependence, unspecified, uncomplicated; Z88.1 Allergy status to other antibiotic agents; Z88.0 Allergy status to penicillin; Z88.6 Allergy status to analgesic agent; Z88.8 Allergy status to other drugs, medicaments and biological substances; Z68.39 Body mass index [BMI] 39.0-39.9, adult

== ENCOUNTER 2019-05-28 21:55 | Inpatient (IN) | payer OTHER ==
[~2019-05-28] VITALS: Ht 157.4 cm; Wt 90.5 kg
[2019-05-28 21:57] VITALS: BP 153/101
[2019-05-28 22:46] LABS: BASO % 0.3 % (0.0-1.0); EOS # 0.3 10*3/uL (0.0-0.4); EOS % 3.8 % (1.0-4.0); HEMATOCRIT 38.1 % (37.0-47.0); HEMOGLOBIN 12.5 g/dl (12.0-16.0); MEAN CELL VOLUME 99.5 fl (81.0-99.0); MEAN CORPUSCULAR HGB 32.6 pg (27.0-31.0); MEAN CORPUSCULAR HGB CONC 32.8 g/dl (33.0-37.0); MEAN PLATELET VOLUME 10.1 fl (9.6-12.3); MONO # 0.7 10*3/uL (0.1-1.0); MONO % 10.1 % (3.0-9.0); NEUT # 4.1 10*3/uL (2.3-7.9); NEUT % 57.5 % (47.0-73.0); PLATELET COUNT AUTOMATED 266 10*3/uL (130-400); RED BLOOD COUNT 3.83 10*6/uL (4.10-5.10); WHITE BLOOD COUNT 7.2 10*3/uL (4.8-10.8)
[2019-05-28 22:51] LABS: BILIRUBIN 1+ (NEGATIVE); BLOOD NEGATIVE (NEGATIVE); CLARITY SL CLOUDY (CLEAR); COLOR YELLOW (YELLOW); GLUCOSE NEGATIVE (NEGATIVE); KETONE TRACE (NEGATIVE); LEUKO ESTERASE NEGATIVE (NEGATIVE); NITRITE NEGATIVE (NEGATIVE); PH 5.5 (5.0-9.0); SPECIFIC GRAVITY >= 1.030 (1.005-1.030)
[2019-05-28 22:56] LABS: EPITHELIAL CELLS TNTC
[2019-05-28 22:57] LABS: BACTERIA 2+
[2019-05-28 23:01] LABS: ALBUMIN 3.7 gm/dl (3.1-4.5); ALKALINE PHOSPHATASE 71 U/L (45-117); BUN 21 mg/dl (7-24); CHLORIDE 114 mmol/L (98-107); CREATININE 0.78 mg/dL (0.55-1.02); LIPASE 114 U/L (73-393); POTASSIUM 3.7 mmol/L (3.5-5.1); SGOT/AST 27 IU/L (3-35); SGPT/ALT 41 U/L (12-78); SODIUM 143 mmol/L (136-145); TOTAL PROTEIN 6.9 gm/dL (6.4-8.2)
[2019-05-29 00:28] VITALS: BP 144/90
--- NOTE | 2019-05-29 00:37 | NUR ---
PT STATES NAUSEA HAS IMPROVED AND ZOFRAN EFFECTIVE. PT STATES PAIN IN LOWER BACK PAIN. PT ADMITS PAIN IS 8/10 CURRENTLY
[2019-05-29 02:15] VITALS: BP 143/99
--- NOTE | 2019-05-29 02:15 | NUR ---
Time: 214 A 33 year old FEMALE admitted to 5E under services of ARBEN DING DO. Pt. arrived via stretcher from ER. Chief complaint: ABDOMINAL PAIN. WENCESLAO JANG
[2019-05-29] MEDS ORDERED: DICLOFENAC SOD75 MG PO (02:33)
[2019-05-29] MEDS ORDERED: NEURONTIN600 MG PO (02:35)
[2019-05-29] MEDS ORDERED: NADOLOL40 MG PO (02:37)
[2019-05-29] MEDS ORDERED: MAGNESIUM OXID400 MG PO (02:38)
--- NOTE | 2019-05-29 03:08 | NUR ---
MED REQ UPDATED.
--- NOTE | 2019-05-29 04:42 | NUR ---
PATIENT HAS COMPLAINT OF BACK PAIN, STATED NOTHING IS WORKING. NEW ORDER RECEIVED FOR MORHPINE, WAS GIVEN. THEN PATIENT STATED THAT SHE HAD IT IN ER, AND I MADE HER HAVE WORSE ABDOMINAL PAIN. I ENCOURAGED PATIENT TO NOTIFY ME IF IT BECAME WORSE.
[2019-05-29 06:37] LABS: BASO % 0.4 % (0.0-1.0); EOS # 0.1 10*3/uL (0.0-0.4); EOS % 2.1 % (1.0-4.0); HEMATOCRIT 33.8 % (37.0-47.0); HEMOGLOBIN 10.8 g/dl (12.0-16.0); LYMPH # 1.5 10*3/uL (1.3-4.4); LYMPH % 26.6 % (27.0-41.0); MEAN CELL VOLUME 99.7 fl (81.0-99.0); MEAN CORPUSCULAR HGB 31.9 pg (27.0-31.0); MEAN PLATELET VOLUME 10.9 fl (9.6-12.3); MONO # 0.5 10*3/uL (0.1-1.0); MONO % 8.7 % (3.0-9.0); NEUT # 3.5 10*3/uL (2.3-7.9); NEUT % 61.8 % (47.0-73.0); PLATELET COUNT AUTOMATED 216 10*3/uL (130-400); RED BLOOD COUNT 3.39 10*6/uL (4.10-5.10); WHITE BLOOD COUNT 5.6 10*3/uL (4.8-10.8)
[2019-05-29 06:41] LABS: BUN 15 mg/dl (7-24); CHLORIDE 113 mmol/L (98-107); PHOSPHOROUS 3.4 mg/dL (2.5-4.9); POTASSIUM 3.6 mmol/L (3.5-5.1); SODIUM 143 mmol/L (136-145)
--- NOTE | 2019-05-29 07:05 | NUR ---
PER PATIENT SHE DID NOT WANT AWAKENED FOR SHIFT REPORT, REPORT RECEIVED, WHITE BOARD UPDATED.
--- NOTE | 2019-05-29 07:58 | NUR ---
Shift chart check completed.
[2019-05-29 08:00] VITALS: BP 90/60
--- NOTE | 2019-05-29 08:45 | NUR ---
PATIENT C/O NAUSEA, MEDICATED WITH ZOFRAN ORDERED
[2019-05-29 12:00] VITALS: BP 98/78
--- NOTE | 2019-05-29 12:37 | NUR ---
PATIENT GIVEN MORPHINE FOR ABD AND BACK PAIN 10/10 DESCRIBES CONSTANTING ACHING [place] PA AT TIMES.
--- NOTE | 2019-05-29 12:52 | NUR ---
CALL PLACED TO DR. RAMIREZ TO REQUEST HER RESTART PATIENTS VOULTAREN SHE IS WANTING IT SAYING ITS THE ONLY THING THAT WORKS.
[2019-05-29 16:00] VITALS: BP 108/70
[2019-05-29 20:00] VITALS: BP 111/55
--- NOTE | 2019-05-29 20:55 | NUR ---
TALKED TO DR. ANDRADE ABOUT PATIENT STATING MORPHINE WORKS FOR ABOUT AN HOUR THEN WEARS OFF. ASKED FOR PERCOCET TO HELP CONTROL PATIENT'S PAIN FOR LONGER. DR. ANDRADE STATED HE WOULD LOOK AND PUT ORDERS IN.
--- NOTE | 2019-05-29 21:30 | NUR ---
PATIENT MEDICATED WITH PRN MORPHINE PER ORDER FOR C/O 7/10 LOWER BACK PAIN TO HER RIGHT. ALSO, PATIENT MEDICATED WITH PRN RESTORIL PER REQUEST FOR SOMETHING FOR SLEEP. IV FLUID INFUSING ORDERED. CALL LIGHT WITHIN REACH. WILL MONITOR FOR EFFECTIVENESS.
--- NOTE | 2019-05-29 22:15 | NUR ---
PRN MORPHINE AND RESTORIL EFFECTIVE.
[2019-05-30] VITALS: BP 104/63
--- NOTE | 2019-05-30 03:00 | NUR ---
PATIENT ASLEEP IN BED. RESPIRATIONS EVEN AND UNLABORED. CALL LIGHT WITHIN REACH.
--- NOTE | 2019-05-30 03:59 | NUR ---
24 HR chart check completed.
--- NOTE | 2019-05-30 07:54 | NUR ---
MORPHINE GIVEN PER ORDER FOR C/O ABD PAIN 10/10 AND CRAMPING. CALL LIGHT IN REACH. K-PAD IN USE. STATES IT IS HELPING THE HIP PAIN FROM "SITTING & LAYING IN BED SO MUCH." WILL MONITOR.
[2019-05-30 08:00] VITALS: BP 122/88
--- NOTE | 2019-05-30 08:23 | NUR ---
CALLED . PT REQUESTING PERCOCET INSTEAD OF MORPHINE AND ONLY HAVING MORPHONE FOR BREAKTHROUGH PAIN THIS ONLY "LAST ABOUT 1 HOUR." SAID HE WOULD TALK WITH AND TO GIVE THE ORDERED MORPHINE NOW.
--- NOTE | 2019-05-30 08:26 | NUR ---
PER PT, MORPHINE WAS EFFECTIVE. STATES SHE IS MORE RELAXED AND PAIN IS NOW 4/10. CALL LIGHT IN REACH.
[2019-05-30] MEDS ORDERED: DICYCLOMINE HCL10 MG PO (10:52)
--- NOTE | 2019-05-30 11:59 | NUR ---
Discharge instructions reviewed with patient/family. Patient receptive and verbalizes understanding. Follow-up care arranged. Written instructions given to patient/family. BELEN VINCENT
[2019-05-30] MEDS ORDERED: DICLOFENAC SOD75 MG PO (12:42)
[2019-05-30] MEDS ORDERED: MAGNESIUM OXID400 MG PO (12:42)
[2019-05-30] MEDS ORDERED: NADOLOL40 MG PO (12:42)
[2019-05-30] MEDS ORDERED: NEURONTIN600 MG PO (12:42)
== END 2019-05-30 11:59 | disposition home or self-care (01) | DRG 249 ==
LOC: ED 21:55 → 5E 05-29 01:26 → EDHOLD 05-29 01:26 → 5E 05-29 01:43
PROVIDERS: Internal Medicine; Physician Assistant; ADMIT Internal Medicine
DX: A08.4 Viral intestinal infection, unspecified (principal); R19.7 Diarrhea, unspecified; J45.909 Unspecified asthma, uncomplicated; F32.9 Major depressive disorder, single episode, unspecified; I10 Essential (primary) hypertension; E66.9 Obesity, unspecified; F17.200 Nicotine dependence, unspecified, uncomplicated; G89.29 Other chronic pain; Z88.1 Allergy status to other antibiotic agents; Z88.8 Allergy status to other drugs, medicaments and biological substances; Z88.5 Allergy status to narcotic agent; Z88.0 Allergy status to penicillin; Z71.6 Tobacco abuse counseling; Z90.49 Acquired absence of other specified parts of digestive tract; Z98.51 Tubal ligation status; Z68.32 Body mass index [BMI] 32.0-32.9, adult

== ENCOUNTER 2019-09-03 18:26 | Emergency (ER) | payer SELFPAY ==
[~2019-09-03] VITALS: Ht 157.4 cm; Wt 79.4 kg
[~2019-09-03 18:26] MED LIST changes: +DICLOFENAC SOD75 MG PO; +DICYCLOMINE HCL10 MG PO; +MAGNESIUM OXID400 MG PO; +NADOLOL40 MG PO; +NEURONTIN600 MG PO
[2019-09-03 18:51] LABS: BASO % 0.4 % (0.0-1.0); EOS # 0.1 10*3/uL (0.0-0.4); EOS % 1.3 % (1.0-4.0); HEMATOCRIT 41.5 % (37.0-47.0); LYMPH # 2.2 10*3/uL (1.3-4.4); LYMPH % 22.9 % (27.0-41.0); MEAN CELL VOLUME 98.6 fl (81.0-99.0); MEAN CORPUSCULAR HGB 33.3 pg (27.0-31.0); MEAN CORPUSCULAR HGB CONC 33.7 g/dl (33.0-37.0); MEAN PLATELET VOLUME 10.4 fl (9.6-12.3); MONO # 0.6 10*3/uL (0.1-1.0); MONO % 6.7 % (3.0-9.0); NEUT # 6.5 10*3/uL (2.3-7.9); NEUT % 68.5 % (47.0-73.0); PLATELET COUNT AUTOMATED 233 10*3/uL (130-400); RED BLOOD COUNT 4.21 10*6/uL (4.10-5.10); RED CELL DISTRI WIDTH 12.5 % (0-14.5); WHITE BLOOD COUNT 9.4 10*3/uL (4.8-10.8)
[2019-09-03 19:07] LABS: ALBUMIN 3.8 gm/dl (3.1-4.5); ALKALINE PHOSPHATASE 87 U/L (45-117); BUN 16 mg/dl (7-24); CHLORIDE 105 mmol/L (98-107); CREATININE 0.79 mg/dL (0.55-1.02); LIPASE 88 U/L (73-393); POTASSIUM 3.8 mmol/L (3.5-5.1); SGOT/AST 15 IU/L (3-35); SGPT/ALT 42 U/L (12-78); SODIUM 141 mmol/L (136-145); TOTAL PROTEIN 7.4 gm/dL (6.4-8.2)
[2019-09-03 20:26] LABS: BILIRUBIN NEGATIVE (NEGATIVE); BLOOD 2+ (NEGATIVE); CLARITY SL CLOUDY (CLEAR); COLOR YELLOW (YELLOW); GLUCOSE NEGATIVE (NEGATIVE); KETONE NEGATIVE (NEGATIVE); LEUKO ESTERASE NEGATIVE (NEGATIVE); NITRITE NEGATIVE (NEGATIVE); UROBILINOGEN 0.2 E.U./dl (0.2-1.0)
[2019-09-03 20:27] LABS: BACTERIA 1+; EPITHELIAL CELLS 41-50; MUCOUS 1+; RBC 0-2 rbc/hpf (0-2); WBC 0-2 wbc/hpf (0-5)
[2019-09-03] MEDS ORDERED: ZOFRAN4 MG PO (20:34)
== END 2019-09-03 21:45 | disposition home or self-care (01) ==
LOC: ED 18:26
PROVIDERS: Nurse Practitioner Family
DX: A08.4 Viral intestinal infection, unspecified (principal); R11.2 Nausea with vomiting, unspecified; J45.909 Unspecified asthma, uncomplicated; G43.909 Migraine, unspecified, not intractable, without status migrainosus; G62.9 Polyneuropathy, unspecified; F17.200 Nicotine dependence, unspecified, uncomplicated; Z88.1 Allergy status to other antibiotic agents; Z88.0 Allergy status to penicillin; Z88.8 Allergy status to other drugs, medicaments and biological substances; Z91.040 Latex allergy status; Z88.6 Allergy status to analgesic agent

== ENCOUNTER 2019-10-22 20:23 | Emergency (ER) | payer SELFPAY ==
[~2019-10-22] VITALS: Ht 157.4 cm; Wt 81.6 kg
[2019-10-22] MEDS ORDERED: GABAPENTIN600 MG PO (20:41)
[2019-10-22] MEDS ORDERED: VOLTAREN50 M1 PO (20:42)
[2019-10-22] MEDS ORDERED: PREDNISONE20 M1 PO (21:20)
== END 2019-10-22 21:33 | disposition home or self-care (01) ==
LOC: ED 20:23
DX: R05 Cough (principal); R07.89 Other chest pain; J45.909 Unspecified asthma, uncomplicated; G43.909 Migraine, unspecified, not intractable, without status migrainosus; G62.9 Polyneuropathy, unspecified; F17.200 Nicotine dependence, unspecified, uncomplicated; Z91.048 Other nonmedicinal substance allergy status; Z88.1 Allergy status to other antibiotic agents; Z88.0 Allergy status to penicillin; Z88.5 Allergy status to narcotic agent; Z88.6 Allergy status to analgesic agent; Z91.040 Latex allergy status; Z88.8 Allergy status to other drugs, medicaments and biological substances; Z79.899 Other long term (current) drug therapy; Z90.49 Acquired absence of other specified parts of digestive tract

== ENCOUNTER → 2019-12-09 | Outpatient (CLI) | payer OTHER ==
[~2019-12-09] MED LIST changes: +GABAPENTIN600 MG PO; +PROAIR HFA8.5 GM INH
[2019-12-09 15:08] LABS: BASO # 0.1 10*3/uL (0.0-0.1); BASO % 0.6 % (0.0-1.0); EOS # 0.2 10*3/uL (0.0-0.4); EOS % 2.6 % (1.0-4.0); HEMATOCRIT 40.6 % (37.0-47.0); LYMPH % 22.8 % (27.0-41.0); MEAN CORPUSCULAR HGB 33.3 pg (27.0-31.0); MEAN PLATELET VOLUME 10.1 fl (9.6-12.3); MONO # 0.7 10*3/uL (0.1-1.0); MONO % 7.6 % (3.0-9.0); NEUT # 5.9 10*3/uL (2.3-7.9); NEUT % 66.1 % (47.0-73.0); PLATELET COUNT AUTOMATED 267 10*3/uL (130-400); RED BLOOD COUNT 4.02 10*6/uL (4.10-5.10); RED CELL DISTRI WIDTH 12.7 % (0-14.5); WHITE BLOOD COUNT 8.9 10*3/uL (4.8-10.8)
[2019-12-09 17:20] LABS: ALBUMIN 3.8 gm/dl (3.1-4.5); ALKALINE PHOSPHATASE 86 U/L (45-117); BUN 14 mg/dl (7-24); CHLORIDE 107 mmol/L (98-107); CHOLESTEROL 217 mg/dL (<200); CREATININE 0.76 mg/dL (0.55-1.02); HDL CHOLESTEROL 54 mg/dl (40-60); LDL CHOLESTEROL 123 mg/dL (9-159); POTASSIUM 4.7 mmol/L (3.5-5.1); SGOT/AST 28 IU/L (3-35); SGPT/ALT 56 U/L (12-78); SODIUM 138 mmol/L (136-145); TOTAL PROTEIN 7.2 gm/dL (6.4-8.2); TRIGLYCERIDES 201 mg/dl (<150); VLDL CHOLESTEROL 40 mg/dL (6-40)
== END | disposition home or self-care (01) ==
LOC: LAB 14:48
PROVIDERS: Family Medicine
DX: D68.52 Prothrombin gene mutation (principal); E72.12 Methylenetetrahydrofolate reductase deficiency; G62.9 Polyneuropathy, unspecified

== ENCOUNTER 2019-12-15 11:10 | Emergency (ER) | payer OTHER ==
[~2019-12-15] VITALS: Ht 157.4 cm; Wt 86.2 kg
[~2019-12-15 11:10] MED LIST changes: -PROAIR HFA8.5 GM INH
[2019-12-15 11:33] LABS: BASO # 0.1 10*3/uL (0.0-0.1); BASO % 0.5 % (0.0-1.0); EOS # 0.3 10*3/uL (0.0-0.4); EOS % 2.7 % (1.0-4.0); HEMATOCRIT 38.3 % (37.0-47.0); LYMPH # 1.6 10*3/uL (1.3-4.4); LYMPH % 16.3 % (27.0-41.0); MEAN CELL VOLUME 99.7 fl (81.0-99.0); MEAN CORPUSCULAR HGB 33.3 pg (27.0-31.0); MEAN CORPUSCULAR HGB CONC 33.4 g/dl (33.0-37.0); MEAN PLATELET VOLUME 10.5 fl (9.6-12.3); MONO # 0.7 10*3/uL (0.1-1.0); MONO % 6.8 % (3.0-9.0); NEUT % 73.4 % (47.0-73.0); PLATELET COUNT AUTOMATED 256 10*3/uL (130-400); RED BLOOD COUNT 3.84 10*6/uL (4.10-5.10); RED CELL DISTRI WIDTH 12.6 % (0-14.5); WHITE BLOOD COUNT 9.5 10*3/uL (4.8-10.8)
[2019-12-15 11:44] LABS: ACT PARTIAL THROMBO TIME 27.1 SECONDS (20.0-32.1)
[2019-12-15 11:49] LABS: ALBUMIN 3.9 gm/dl (3.1-4.5); ALKALINE PHOSPHATASE 65 U/L (45-117); BUN 16 mg/dl (7-24); CHLORIDE 111 mmol/L (98-107); CREATININE 0.68 mg/dL (0.55-1.02); POTASSIUM 3.7 mmol/L (3.5-5.1); SGOT/AST 14 IU/L (3-35); SGPT/ALT 32 U/L (12-78); SODIUM 141 mmol/L (136-145); TOTAL PROTEIN 6.8 gm/dL (6.4-8.2)
[2019-12-15 11:50] LABS: TROPONIN I < 0.015 ng/ml (<0.045)
[2019-12-15] MEDS ORDERED: PREDNISONE20 M1 PO (14:30)
[2019-12-15] MEDS ORDERED: PROAIR HFA8.5 GM INH (14:30)
== END 2019-12-15 14:55 ==
LOC: ED 11:10
PROVIDERS: Nurse Practitioner Family
DX: J44.1 Chronic obstructive pulmonary disease with (acute) exacerbation (principal); Z88.8 Allergy status to other drugs, medicaments and biological substances; Z88.0 Allergy status to penicillin; Z91.040 Latex allergy status; Z88.5 Allergy status to narcotic agent; Z79.899 Other long term (current) drug therapy; Z90.49 Acquired absence of other specified parts of digestive tract

== ENCOUNTER → 2019-12-31 | Outpatient (CLI) | payer OTHER ==
[~2019-12-31] MED LIST changes: +PROAIR HFA8.5 GM INH
== END | disposition home or self-care (01) ==
LOC: D 10:48
DX: Z68.42 Body mass index [BMI] 45.0-49.9, adult (principal)

== ENCOUNTER → 2020-01-11 | Outpatient (CLI) | payer OTHER | END | disposition home or self-care (01) | LOC: US 13:29 | DX: M25.511 Pain in right shoulder (principal) ==

== ENCOUNTER 2020-04-06 15:48 | Emergency (ER) | payer OTHER ==
[~2020-04-06] VITALS: Wt 83.9 kg
[2020-04-06 16:13] LABS: BASO % 0.3 % (0.0-1.0); EOS # 0.1 10*3/uL (0.0-0.4); EOS % 1.4 % (1.0-4.0); HEMATOCRIT 36.1 % (37.0-47.0); LYMPH # 1.2 10*3/uL (1.3-4.4); LYMPH % 13.2 % (27.0-41.0); MEAN CELL VOLUME 96.5 fl (81.0-99.0); MEAN CORPUSCULAR HGB 32.1 pg (27.0-31.0); MEAN CORPUSCULAR HGB CONC 33.2 g/dl (33.0-37.0); MEAN PLATELET VOLUME 10.2 fl (9.6-12.3); MONO # 0.6 10*3/uL (0.1-1.0); MONO % 6.9 % (3.0-9.0); NEUT # 7.1 10*3/uL (2.3-7.9); PLATELET COUNT AUTOMATED 221 10*3/uL (130-400); RED BLOOD COUNT 3.74 10*6/uL (4.10-5.10); RED CELL DISTRI WIDTH 12.3 % (0-14.5); WHITE BLOOD COUNT 9.2 10*3/uL (4.8-10.8)
[2020-04-06 16:24] LABS: ACT PARTIAL THROMBO TIME 28.6 SECONDS (20.0-32.1)
[2020-04-06 16:30] LABS: ALBUMIN 3.8 gm/dl (3.1-4.5); ALKALINE PHOSPHATASE 77 U/L (45-117); BUN 13 mg/dl (7-24); CHLORIDE 110 mmol/L (98-107); CREATININE 0.72 mg/dL (0.55-1.02); POTASSIUM 3.3 mmol/L (3.5-5.1); SGOT/AST 13 IU/L (3-35); SGPT/ALT 29 U/L (12-78); SODIUM 141 mmol/L (136-145); TOTAL PROTEIN 7.1 gm/dL (6.4-8.2)
[2020-04-06 16:31] LABS: TROPONIN I < 0.015 ng/ml (<0.045)
[2020-04-06] MEDS ORDERED: PREDNISONE10 MG PO (18:20)
[2020-04-06] MEDS ORDERED: BENADRYL ALLERG25 M5 PO (18:20)
== END 2020-04-06 18:44 | disposition home or self-care (01) ==
LOC: ED 15:48
PROVIDERS: Family Medicine
DX: R07.89 Other chest pain (principal); R06.02 Shortness of breath; J45.909 Unspecified asthma, uncomplicated; G43.909 Migraine, unspecified, not intractable, without status migrainosus; F17.200 Nicotine dependence, unspecified, uncomplicated; Z88.1 Allergy status to other antibiotic agents; Z88.8 Allergy status to other drugs, medicaments and biological substances; Z88.6 Allergy status to analgesic agent; Z91.040 Latex allergy status

== ENCOUNTER 2020-05-14 18:31 | Inpatient (IN) | payer OTHER ==
[~2020-05-14] VITALS: Ht 157.4 cm; Wt 82.6 kg
[~2020-05-14 18:31] MED LIST changes: +BENADRYL ALLERG25 M5 PO; +PREDNISONE10 MG PO
[2020-05-14 18:44] VITALS: BP 172/89
--- NOTE | 2020-05-14 19:38 | NUR ---
PT AMBULATORY TO ED 5 AT THIS TIME.
[2020-05-14 20:00] VITALS: BP 109/58
[2020-05-14 20:20] LABS: BASO % 0.4 % (0.0-1.0); EOS % 0.3 % (1.0-4.0); HEMATOCRIT 36.8 % (37.0-47.0); LYMPH # 1.6 10*3/uL (1.3-4.4); LYMPH % 14.8 % (27.0-41.0); MEAN CELL VOLUME 97.4 fl (81.0-99.0); MEAN CORPUSCULAR HGB 31.5 pg (27.0-31.0); MEAN CORPUSCULAR HGB CONC 32.3 g/dl (33.0-37.0); MONO # 0.7 10*3/uL (0.1-1.0); MONO % 6.6 % (3.0-9.0); NEUT # 8.2 10*3/uL (2.3-7.9); NEUT % 77.5 % (47.0-73.0); PLATELET COUNT AUTOMATED 281 10*3/uL (130-400); RED BLOOD COUNT 3.78 10*6/uL (4.10-5.10); RED CELL DISTRI WIDTH 13.2 % (0-14.5); WHITE BLOOD COUNT 10.5 10*3/uL (4.8-10.8)
[2020-05-14 20:32] LABS: BUN 18 mg/dl (7-24); CHLORIDE 111 mmol/L (98-107); SODIUM 141 mmol/L (136-145)
[2020-05-14 22:51] VITALS: BP 112/67
[2020-05-14] MEDS ORDERED: TOPROL XL25 MG PO (23:41)
[2020-05-14] MEDS ORDERED: BENTYL PO (23:45)
[2020-05-14] MEDS ORDERED: PANTOPRAZOLE SO20 MG PO (23:46)
[2020-05-14] MEDS ORDERED: NATURE'S BLEND F1 MG PO (23:47)
[2020-05-14] MEDS ORDERED: SINGULAIR10 M1 PO (23:49)
[2020-05-14 23:57] VITALS: BP 110/62
[2020-05-15 02:30] VITALS: BP 118/77
[2020-05-15 05:21] VITALS: BP 114/76
[2020-05-15 05:31] LABS: ALBUMIN 3.6 gm/dl (3.1-4.5); BUN 17 mg/dl (7-24); CHLORIDE 108 mmol/L (98-107); CREATININE 0.82 mg/dL (0.55-1.02); POTASSIUM 3.9 mmol/L (3.5-5.1); SGOT/AST 10 IU/L (3-35); SGPT/ALT 26 U/L (12-78); SODIUM 138 mmol/L (136-145)
[2020-05-15 05:39] LABS: ALKALINE PHOSPHATASE 77 U/L (45-117); FREE T4 1.02 ng/dl (0.76-1.46); TOTAL PROTEIN 6.9 gm/dL (6.4-8.2)
[2020-05-15 06:04] LABS: HEMATOCRIT 36.4 % (37.0-47.0); MEAN CELL VOLUME 97.6 fl (81.0-99.0); MEAN CORPUSCULAR HGB 31.6 pg (27.0-31.0); MEAN CORPUSCULAR HGB CONC 32.4 g/dl (33.0-37.0); MEAN PLATELET VOLUME 10.9 fl (9.6-12.3); PLATELET COUNT AUTOMATED 279 10*3/uL (130-400); RED BLOOD COUNT 3.73 10*6/uL (4.10-5.10); RED CELL DISTRI WIDTH 13.1 % (0-14.5); WHITE BLOOD COUNT 11.1 10*3/uL (4.8-10.8)
--- NOTE | 2020-05-15 06:04 | NUR ---
SPOKE TO DR MARIO TO NOTIFY OF CONSULT. AWARE SHE IS A ED HOLD AND IS IN ROOM 5 CURRENTLY. NO NEW ORDERS RECEIVED.
[2020-05-15 06:33] LABS: TOTAL CELLS COUNTED 100 #CELLS
[2020-05-15 06:34] LABS: PLATELET SUFFICIENCY NORMAL (NORMAL)
[2020-05-15 07:45] LABS: VITAMIN D, 25-HYDROXY 36.4 ng/mL (30-100)
[2020-05-15 09:00] VITALS: BP 116/74
--- NOTE | 2020-05-15 10:15 | NUR ---
PT REQUESTS "MORNING MEDS". ORDERED.
--- NOTE | 2020-05-15 13:15 | NUR ---
DR MARIO TO BEDSIDE FOR CONSULT.
--- NOTE | 2020-05-15 13:30 | NUR ---
DR MRAIO HERE TO SPEAK WITH PT AND PROVIDES VERBAL ORDER ON HIS WAY OUT FOR VICODIN BUT PT IS ALLERIC TO HYDROCODONE AND ACETAMINOPHEN. HE CHANGES THE ORDER TO NAPROSYN, BUT PT ALREADY TAKES VOLTAREN BID AND DOES NOT WANT THIS. SHE ASKS FOR PERCOCET BUT HE HAD LEFT THE FACILITY SO I DID CALL HIS CELL PHONE AND LEAVE A MESSAGE BUT NO AMNSWER YET. WILL CONTINUE WITH THRE VOLATREN DOSING FOR NOW,.
--- NOTE | 2020-05-15 13:55 | NUR ---
DR MARIO NOW CALLS, ORDERS PERCOCET PRN DOSE AND NPO AFTER MIDNIGHT FOR BRONCH IN A.M.
--- NOTE | 2020-05-15 15:30 | NUR ---
RECIEVED FROM ED HOLD ALERT AND ORIENTED, SOB WITH EXERTION, DIMINSHED HARSH SOUNDING LUNGS VERY ANIMATED, AND TALKATIVE GOOD KNOWLEDGE OF MEDICAL AND MEDICATION HISTORY
[2020-05-15 16:00] VITALS: BP 148/79
--- NOTE | 2020-05-15 19:26 | NUR ---
CHART CHECK COMPLETE.
[2020-05-15 20:00] VITALS: BP 104/51
--- NOTE | 2020-05-15 21:20 | NUR ---
PT AMBULATED TO SHOWER, HIBICLENS USED, AND BED LINENS CHANGED.
[2020-05-16] VITALS (7 sets, daily range): BP systolic 114–136; BP diastolic 60–97
--- NOTE | 2020-05-16 04:02 | NUR ---
PT SLEEPING WITH EVEN, UNLABORED RESPIRATIONS.
--- NOTE | 2020-05-16 07:22 | NUR ---
TO OR VIA BED
--- NOTE | 2020-05-16 09:15 | NUR ---
RETURNED FROM OR, BREAKFAST ORDERED
--- NOTE | 2020-05-16 13:31 | NUR ---
PT CALL LIGHT ON, GRIMACING, TEARFUL, C/O BACK PAIN "9"/10, "NOT RELIEVED BY THE PERCOCET". DR BIGGS NOTIFIED. HER ROUTINE SCHEDULED NEURONTIN AND PERCOCET GIVEN.
--- NOTE | 2020-05-16 13:47 | NUR ---
DILUADID FOR 9/10 RIB PAIN FROM COUGHING
--- NOTE | 2020-05-16 15:25 | NUR ---
TRANSFERRED TO 516 WITH ALL BELONGINGS
--- NOTE | 2020-05-16 15:30 | NUR ---
RECEIVED REPORT FROM ICU. IN STABLE CONDITION. ASSESSMENT COMPLETE.
--- NOTE | 2020-05-16 16:10 | NUR ---
Bonsai Tender in to talk to patient. Patient states lives at HOME with AND KIDS. There are 12 steps in the home. Physician: Neva OTOOLE [facility]: [facility] Home health services: NONE Patient's level of ADLs: INDEPENDENT Patient has working utilities: YES DME: NEBULIZER Follow-up physician's appointment after d/c: WILL BE MADE BY HOSPITALIST NURSE DIRECTOR ON DISCHARGE Does patient want to access PORTAL?: NO Discharge plan PT LIVES AT HOME WITH HER FAMILY AND IS INDEPENDENT IN HER CARE. DENIES SHE WILL HAVE ANY NEEDS ON DISCHARGE. PLAN IS TO RETURN HOME WHEN MEDICALLY STABLE. WILL CONTINUE TO FOLLOW. STATES SHE WILL HAVE A RIDE HOME.. MUNIR GIBSON
--- NOTE | 2020-05-16 19:00 | NUR ---
ASSUMED CARE FOR THIS PT AT THIS TIME. PT RESTING QUIETLY IN BED WATCHING TV. MOIST PROCUREMENT DIRECTOR COUGH NOTED. DYSPNEA AT REST NOTED/VOICED. RHONCHI/RALES/WHEEZING NOTED T/O. PT C/O RIB PAIN D/T COUGHING. PT TEACHING GIVEN ON PERCOCET SCHEDULED AND WILL BRING TO PT WHEN DUE. CALL LIGHT IN REACH.
--- NOTE | 2020-05-16 20:02 | NUR ---
DR. MATHUR NOTIFIED OF PT'S REQUEST FOR DIFLUCAN FOR VAGINAL ITCHING. DR. ELINA DILLARD.
[2020-05-17] VITALS: BP 151/97
[2020-05-17 06:16] LABS: MEAN CELL VOLUME 99.5 fl (81.0-99.0); MEAN CORPUSCULAR HGB 30.6 pg (27.0-31.0); MEAN CORPUSCULAR HGB CONC 30.8 g/dl (33.0-37.0); MEAN PLATELET VOLUME 10.6 fl (9.6-12.3); PLATELET COUNT AUTOMATED 276 10*3/uL (130-400); RED BLOOD COUNT 3.72 10*6/uL (4.10-5.10); RED CELL DISTRI WIDTH 13.3 % (0-14.5); WHITE BLOOD COUNT 17.6 10*3/uL (4.8-10.8)
--- NOTE | 2020-05-17 06:22 | NUR ---
PT CALLED THIS NURSE TO ROOM AND REQUESTED HEPARIN PROPHALAXIS AND C/O RT HIP PAIN SHARP W/COUGHING WHICH PT SAYS IS NEW. WILL NOTIFY
--- NOTE | 2020-05-17 06:26 | NUR ---
DR. MATHUR NOTIFIED OF PT'S C/O RT HIP PAIN AND REQUEST FOR HEPARIN D/T LOVENOX ALLERGY. NO ORDERS RCVD AT THIS TIME.
[2020-05-17 06:47] LABS: BUN 23 mg/dl (7-24); CHLORIDE 108 mmol/L (98-107); POTASSIUM 4.1 mmol/L (3.5-5.1); SODIUM 139 mmol/L (136-145)
[2020-05-17 06:49] LABS: CREATININE 0.87 mg/dL (0.55-1.02)
[2020-05-17 07:02] LABS: TOTAL CELLS COUNTED 100 #CELLS
[2020-05-17 07:03] LABS: PLATELET SUFFICIENCY NORMAL (NORMAL); POLYCHROMASIA SLIGHT; ROULEAUX SLIGHT
[2020-05-17 08:00] VITALS: BP 122/80
--- NOTE | 2020-05-17 08:00 | NUR ---
24 HR chart check completed.
--- NOTE | 2020-05-17 08:21 | NUR ---
MEDICATED WITH ROUTINE PERCOCET ORDERED. PT WITH C/O RIGHT LOWER POSTERIOR FLANK PAIN.
--- NOTE | 2020-05-17 09:15 | NUR ---
MEDICATION SOMEWHAT EFFECTIVE FOR PAIN PER PT.
[2020-05-17 12:00] VITALS: BP 123/78
--- NOTE | 2020-05-17 13:37 | NUR ---
MEDICATED WITH ROUTINE PERCOCET ORDERED FOR RIGHT POSTERIOR BACK PAIN 11/12.
--- NOTE | 2020-05-17 14:30 | NUR ---
MEDICATION EFFECTIVE FOR PAIN.
[2020-05-17 15:10] LABS: ACID FAST SPEC PROCESSING Concentration (.)
[2020-05-17 16:00] VITALS: BP 123/67
--- NOTE | 2020-05-17 17:55 | NUR ---
MEDICATED WITH ROUTINE PERCOCET ORDERED FOR C/O RIGHT FLANK PAIN.
[2020-05-17 20:05] VITALS: BP 143/80
--- NOTE | 2020-05-17 23:30 | NUR ---
PT C/O FREQ COUGHING. FORCED DRY COUGH NOTED. PT TEACHING GIVEN ON NEED TO COUGH TO INFLATE LUNGS AND EXPECTORATE MUCUS. PT STATES HER RIBS ARE TOO SORE. MEDICATED W/TESSALON TRISTIAN PO. PT ENCOURAGED TO USE KPAD. PT STATES IT IS NOT HELPING ANYMORE. PT STATES THE PAIN SHOT HELPED HER. PT ADVISED THERE IS NO IV PAIN MED ORDERED. LUNG SOUNDS IMPROVED. MILD I/E WHEEZING NOTED T/O. SAT 99% RA. PT ENCOURAGED TO SLOW RESPIRATIONS PT IS SEEN HYPERVENTILATING. WILL MONITOR. CALL LIGHT IN REACH.
[2020-05-18] VITALS: BP 132/71
--- NOTE | 2020-05-18 00:30 | NUR ---
PT STATES THAT TESSALON PEARLS HELPED HER NOT COUGH OFTEN BUT SHE STILL HAS BURNING IN HER CHEST.
--- NOTE | 2020-05-18 05:26 | NUR ---
PT C/O RT SIDE TINGLING. HAND GRASPS EQUAL. PPP. NEUROS INTACT. PT ENCOURAGED TO AMBULATE AND NOTIFY MD TODAY. EXPLAINED TO PT IT MAY BE FROM LAYING IN BED FOR 5 DAYS. PT AGREEABLE. PT WAS AWAKE ALL NIGHT ON CELL PHONE. PT STATES SHE IS GOING TO GO TO SLEEP NOW. CALL LIGHT IN REACH.
[2020-05-18 08:00] VITALS: BP 153/87; BP 166/87
--- NOTE | 2020-05-18 08:00 | NUR ---
C/O RIGHT SIDED HIP/BACK PAIN.
--- NOTE | 2020-05-18 08:54 | NUR ---
MEDICATED WITH ROUTINE PERCOCET ORDERED.
--- NOTE | 2020-05-18 09:45 | NUR ---
MEDICATION SOMEHWAT EFFECTIVE FOR PAIN.
--- NOTE | 2020-05-18 12:00 | NUR ---
Patient resting quietly with no c/o discomfort. Respirations easy and regular. Vital signs stable. No overt distress. MIRNA MAY
--- NOTE | 2020-05-18 12:01 | NUR ---
PT CONTINTINUES TO DENY NEEDS TO ON DISCHARGE WHEN MEDICALLY STABLE.
--- NOTE | 2020-05-18 14:29 | NUR ---
MEDICATED WITH ROUTINE PERCOCET ORDERED.
[2020-05-18 16:00] VITALS: BP 138/92
[2020-05-18] MEDS ORDERED: ZOFRAN4 MG PO (16:56)
[2020-05-18] MEDS ORDERED: MUCUS RELIEF600 MG PO (16:56)
[2020-05-18] MEDS ORDERED: PREDNISONE10 MG PO (16:56)
[2020-05-18] MEDS ORDERED: LEVOFLOXACIN750 M2 PO (16:56)
--- NOTE | 2020-05-18 17:58 | NUR ---
LEAVING IN CARE OF SELF, AMBULATORY, DENIED NEED FOR WHEELCHAIR.
== END 2020-05-18 17:58 | disposition home or self-care (01) | DRG 139 ==
LOC: ED 18:31 → ICCU 20:11 → 5E 20:11 → EDHOLD 20:11 → ICCU 05-15 14:53 → 5E 05-16 15:40
PROVIDERS: Internal Medicine; Internal Medicine Critical Care Medicine; ADMIT Internal Medicine; ATTEND Internal Medicine
PROC: 0BC18ZZ Extirpation of Matter from Trachea, Via Natural or Artificial Opening Endoscopic (ICD-10-PCS; principal; 2020-05-16)
PROC: 0BC98ZZ Extirpation of Matter from Lingula Bronchus, Via Natural or Artificial Opening Endoscopic (ICD-10-PCS; 2020-05-16)
PROC: 0BC48ZZ Extirpation of Matter from Right Upper Lobe Bronchus, Via Natural or Artificial Opening Endoscopic (ICD-10-PCS; 2020-05-16)
PROC: 0BC88ZZ Extirpation of Matter from Left Upper Lobe Bronchus, Via Natural or Artificial Opening Endoscopic (ICD-10-PCS; 2020-05-16)
PROC: 0BC58ZZ Extirpation of Matter from Right Middle Lobe Bronchus, Via Natural or Artificial Opening Endoscopic (ICD-10-PCS; 2020-05-16)
PROC: 0BC38ZZ Extirpation of Matter from Right Main Bronchus, Via Natural or Artificial Opening Endoscopic (ICD-10-PCS; 2020-05-16)
PROC: 0BC78ZZ Extirpation of Matter from Left Main Bronchus, Via Natural or Artificial Opening Endoscopic (ICD-10-PCS; 2020-05-16)
PROC: 0BC68ZZ Extirpation of Matter from Right Lower Lobe Bronchus, Via Natural or Artificial Opening Endoscopic (ICD-10-PCS; 2020-05-16)
PROC: 0BCB8ZZ Extirpation of Matter from Left Lower Lobe Bronchus, Via Natural or Artificial Opening Endoscopic (ICD-10-PCS; 2020-05-16)
DX: J18.9 Pneumonia, unspecified organism (principal); J45.41 Moderate persistent asthma with (acute) exacerbation; F32.9 Major depressive disorder, single episode, unspecified; E72.12 Methylenetetrahydrofolate reductase deficiency; D68.52 Prothrombin gene mutation; E87.8 Other disorders of electrolyte and fluid balance, not elsewhere classified; G62.9 Polyneuropathy, unspecified; M54.9 Dorsalgia, unspecified; T17.590A Other foreign object in bronchus causing asphyxiation, initial encounter; G89.29 Other chronic pain; I10 Essential (primary) hypertension; J40 Bronchitis, not specified as acute or chronic; G43.909 Migraine, unspecified, not intractable, without status migrainosus; E66.9 Obesity, unspecified; D64.9 Anemia, unspecified; K21.9 Gastro-esophageal reflux disease without esophagitis; R73.9 Hyperglycemia, unspecified; T38.0X5A Adverse effect of glucocorticoids and synthetic analogues, initial encounter; Y92.89 Other specified places as the place of occurrence of the external cause; Z88.0 Allergy status to penicillin; Z88.8 Allergy status to other drugs, medicaments and biological substances; Z88.6 Allergy status to analgesic agent; Z88.1 Allergy status to other antibiotic agents; Z91.040 Latex allergy status; Z90.721 Acquired absence of ovaries, unilateral; Z90.49 Acquired absence of other specified parts of digestive tract; Z98.891 History of uterine scar from previous surgery; Z98.51 Tubal ligation status; Z71.6 Tobacco abuse counseling; Z68.33 Body mass index [BMI] 33.0-33.9, adult

== ENCOUNTER → 2020-06-01 | Outpatient (CLI) | payer OTHER ==
[~2020-06-01] MED LIST changes: +BENTYL PO; +CIPRO250 MG PO; +LEVOFLOXACIN750 M2 PO; +MUCUS RELIEF600 MG PO; +NATURE'S BLEND F1 MG PO; +PANTOPRAZOLE SO20 MG PO; +SINGULAIR10 M1 PO; +TOPROL XL25 MG PO
[2020-06-01 13:28] LABS: IRON 82 ug/dL (50-170); TOTAL IRON BINDING CAPACITY 433 ug/dl (250-450)
[2020-06-02 07:10] LABS: COMPLEMENT C4 38 mg/dL (12-38)
[2020-06-02 13:09] LABS: ANTI-DSDNA ANTIBODIES <1 IU/mL (0-9); ANTI-RNP ANTIBODIES 0.2 AI (0.0-0.9); ANTICHROMATIN ANTIBODIES <0.2 AI (0.0-0.9); ANTISCLERODERMA-70 AB <0.2 AI (0.0-0.9); SJOGREN ANTI-SS-A <0.2 AI (0.0-0.9); SJOREN AB, ANTI-SS-B <0.2 AI (0.0-0.9)
[2020-06-02 14:11] LABS: t-TRANSGLUTAMINASE (tTG) IGA <2 U/mL (0-3); t-TRANSGLUTAMINASE (tTG) IgG <2 U/mL (0-5)
[2020-06-07 18:11] LABS: HLA-B27 ANTIGEN Negative (.)
== END | disposition home or self-care (01) ==
LOC: LAB 11:28 → US 11:30
PROVIDERS: Student in an Organized Health Care Education/Training Program; ATTEND Family Medicine
DX: D25.2 Subserosal leiomyoma of uterus (principal); N83.202 Unspecified ovarian cyst, left side; N92.0 Excessive and frequent menstruation with regular cycle; J45.50 Severe persistent asthma, uncomplicated; R53.83 Other fatigue; G62.9 Polyneuropathy, unspecified; M54.41 Lumbago with sciatica, right side; M54.42 Lumbago with sciatica, left side; Z86.2 Personal history of diseases of the blood and blood-forming organs and certain disorders involving the immune mechanism; Z90.721 Acquired absence of ovaries, unilateral

== ENCOUNTER → 2020-06-24 | Outpatient (CLI) | payer OTHER | END | disposition home or self-care (01) | LOC: COVID19 10:44 | PROVIDERS: ATTEND Family Medicine | DX: Z20.828 Contact with and (suspected) exposure to other viral communicable diseases (principal) ==

== ENCOUNTER → 2020-07-03 | Outpatient (CLI) | payer OTHER | END | disposition home or self-care (01) | LOC: RAD 16:47 | PROVIDERS: ATTEND Student in an Organized Health Care Education/Training Program | DX: J45.51 Severe persistent asthma with (acute) exacerbation (principal) ==

== ENCOUNTER → 2020-08-10 | Outpatient (CLI) | payer OTHER | END | disposition home or self-care (01) | LOC: COVID19 11:08 | PROVIDERS: ATTEND Student in an Organized Health Care Education/Training Program | DX: Z20.822 Contact with and (suspected) exposure to COVID-19 (principal) ==

== ENCOUNTER → 2020-08-15 | Outpatient (CLI) | payer OTHER | END | disposition home or self-care (01) | LOC: RAD 18:18 | PROVIDERS: ATTEND Student in an Organized Health Care Education/Training Program | DX: R50.9 Fever, unspecified (principal) ==

== ENCOUNTER 2020-08-16 21:45 | Emergency (ER) | payer OTHER ==
[~2020-08-16] VITALS: Ht 157.4 cm; Wt 81.6 kg
[~2020-08-16 21:45] MED LIST changes: -CIPRO250 MG PO
[2020-08-16 22:20] LABS: BILIRUBIN Negative (Negative); BLOOD 1+ (Negative); CLARITY Cloudy (Clear); COLOR Yellow (Yellow); GLUCOSE Negative (Negative); KETONE Trace (Negative); LEUKO ESTERASE Negative (Negative); NITRITE Negative (Negative); PH 5.5 (4.5-8.0); SPECIFIC GRAVITY >= 1.030 (1.001-1.030)
[2020-08-16 22:20] LABS: BASO % 0.4 % (0.0-1.0); EOS # 0.2 10*3/uL (0.0-0.4); EOS % 2.5 % (1.0-4.0); HEMATOCRIT 36.8 % (37.0-47.0); LYMPH # 2.4 10*3/uL (1.3-4.4); LYMPH % 31.7 % (27.0-41.0); MEAN CORPUSCULAR HGB 30.7 pg (27.0-31.0); MEAN CORPUSCULAR HGB CONC 32.3 g/dl (33.0-37.0); MEAN PLATELET VOLUME 10.4 fl (9.6-12.3); MONO # 0.6 10*3/uL (0.1-1.0); MONO % 7.4 % (3.0-9.0); NEUT # 4.3 10*3/uL (2.3-7.9); NEUT % 57.9 % (47.0-73.0); RED BLOOD COUNT 3.87 10*6/uL (4.10-5.10); RED CELL DISTRI WIDTH 12.6 % (0-14.5); WHITE BLOOD COUNT 7.5 10*3/uL (4.8-10.8)
[2020-08-16 22:34] LABS: MEAN CELL VOLUME 95.1 fl (81.0-99.0); PLATELET COUNT AUTOMATED 240 10*3/uL (130-400)
[2020-08-16 22:36] LABS: ALBUMIN 3.7 gm/dl (3.1-4.5); ALKALINE PHOSPHATASE 63 U/L (45-117); BUN 15 mg/dl (7-24); CHLORIDE 113 mmol/L (98-107); CREATININE 0.62 mg/dL (0.55-1.02); POTASSIUM 3.4 mmol/L (3.5-5.1); SGOT/AST 14 IU/L (3-35); SGPT/ALT 31 U/L (12-78); SODIUM 143 mmol/L (136-145); TOTAL PROTEIN 6.7 gm/dL (6.4-8.2)
[2020-08-16 22:41] LABS: TROPONIN I < 0.015 ng/ml (<0.045)
[2020-08-16 22:42] LABS: EPITHELIAL CELLS TNTC; RBC 16-20 rbc/hpf (0-2)
[2020-08-16] MEDS ORDERED: PREDNISONE50 MG PO (23:38)
[2020-08-17] MEDS ORDERED: CIPRO250 MG PO (22:21)
[2020-08-17] MEDS ORDERED: DIFLUCAN150 MG PO (22:22)
== END 2020-08-17 00:51 | disposition home or self-care (01) ==
LOC: ED 21:45
PROVIDERS: Nurse Practitioner
DX: R05 Cough (principal); Z20.828 Contact with and (suspected) exposure to other viral communicable diseases; J02.9 Acute pharyngitis, unspecified; R53.83 Other fatigue; R79.1 Abnormal coagulation profile; R11.0 Nausea; R19.7 Diarrhea, unspecified; R06.02 Shortness of breath; J45.909 Unspecified asthma, uncomplicated

== ENCOUNTER 2020-08-17 18:05 | Emergency (ER) | payer OTHER ==
[~2020-08-17] VITALS: Ht 157.4 cm; Wt 81.6 kg
[2020-08-17 18:56] LABS: BASO % 0.1 % (0.0-1.0); HEMATOCRIT 36.9 % (37.0-47.0); LYMPH # 1.3 10*3/uL (1.3-4.4); LYMPH % 10.4 % (27.0-41.0); MEAN CELL VOLUME 94.9 fl (81.0-99.0); MEAN CORPUSCULAR HGB 30.8 pg (27.0-31.0); MEAN CORPUSCULAR HGB CONC 32.5 g/dl (33.0-37.0); MEAN PLATELET VOLUME 10.1 fl (9.6-12.3); MONO # 0.8 10*3/uL (0.1-1.0); MONO % 6.3 % (3.0-9.0); NEUT # 10.3 10*3/uL (2.3-7.9); NEUT % 82.9 % (47.0-73.0); PLATELET COUNT AUTOMATED 261 10*3/uL (130-400); RED BLOOD COUNT 3.89 10*6/uL (4.10-5.10); RED CELL DISTRI WIDTH 12.7 % (0-14.5); WHITE BLOOD COUNT 12.4 10*3/uL (4.8-10.8)
[2020-08-17 19:15] LABS: ALKALINE PHOSPHATASE 66 U/L (45-117); BUN 16 mg/dl (7-24); CHLORIDE 111 mmol/L (98-107); CREATININE 0.73 mg/dL (0.55-1.02); POTASSIUM 3.4 mmol/L (3.5-5.1); SGOT/AST 18 IU/L (3-35); SGPT/ALT 32 U/L (12-78); SODIUM 142 mmol/L (136-145); TOTAL PROTEIN 7.2 gm/dL (6.4-8.2)
[2020-08-17 19:40] LABS: BILIRUBIN Negative (Negative); BLOOD 2+ (Negative); CLARITY Turbid (Clear); COLOR Yellow (Yellow); GLUCOSE Negative (Negative); KETONE Trace (Negative); LEUKO ESTERASE Negative (Negative); NITRITE Negative (Negative); SPECIFIC GRAVITY >= 1.030 (1.001-1.030); UROBILINOGEN 0.2 E.U./dl (0.0-1.0)
[2020-08-17 19:54] LABS: EPITHELIAL CELLS 21-30; RBC 16-20 rbc/hpf (0-2)
[2020-08-17 19:55] LABS: BACTERIA 3+
[2020-08-17] MEDS ORDERED: CIPRO250 MG PO (22:21)
[2020-08-17] MEDS ORDERED: DIFLUCAN150 MG PO (22:22)
== END 2020-08-17 22:45 | disposition home or self-care (01) ==
LOC: ED 18:05
PROVIDERS: Nurse Practitioner Family
DX: N39.0 Urinary tract infection, site not specified (principal); Z88.1 Allergy status to other antibiotic agents; Z88.0 Allergy status to penicillin; Z91.010 Allergy to peanuts; Z91.040 Latex allergy status; Z88.6 Allergy status to analgesic agent; Z88.8 Allergy status to other drugs, medicaments and biological substances; Z79.899 Other long term (current) drug therapy; Z87.891 Personal history of nicotine dependence

== ENCOUNTER 2021-02-02 18:47 | Emergency (ER) | payer OTHER ==
[~2021-02-02] VITALS: Wt 74.8 kg
[~2021-02-02 18:47] MED LIST changes: +CIPRO250 MG PO
[2021-02-02 19:23] LABS: BILIRUBIN 1+ (Negative); BLOOD Negative (Negative); CLARITY Cloudy (Clear); COLOR Dark Yellow (Yellow); GLUCOSE Negative (Negative); KETONE 1+ (Negative); LEUKO ESTERASE Negative (Negative); NITRITE Negative (Negative); PH 5.5 (4.5-8.0); SPECIFIC GRAVITY >= 1.030 (1.001-1.030)
[2021-02-02 19:34] LABS: BACTERIA 1+; RBC 0-2 rbc/hpf (0-2); WBC 0-2 wbc/hpf (0-5)
[2021-02-02] MEDS ORDERED: CIPRO500 MG PO (19:51)
== END 2021-02-02 20:05 | disposition home or self-care (01) ==
LOC: ED 18:47
PROVIDERS: Internal Medicine
DX: N39.0 Urinary tract infection, site not specified (principal); Z88.8 Allergy status to other drugs, medicaments and biological substances; Z91.040 Latex allergy status; Z91.010 Allergy to peanuts; Z79.899 Other long term (current) drug therapy; Z98.51 Tubal ligation status; Z90.49 Acquired absence of other specified parts of digestive tract; Z98.890 Other specified postprocedural states

== ENCOUNTER 2021-10-09 18:30 | Emergency (ER) | payer OTHER ==
[~2021-10-09] VITALS: Ht 157.4 cm; Wt 70.3 kg
[2021-10-09 19:57] LABS: BASO # 0.1 10*3/uL (0.0-0.1); BASO % 0.6 % (0.0-1.0); EOS # 0.2 10*3/uL (0.0-0.4); EOS % 2.6 % (1.0-4.0); HEMATOCRIT 37.9 % (37.0-47.0); LYMPH # 2.2 10*3/uL (1.3-4.4); LYMPH % 24.7 % (27.0-41.0); MEAN CELL VOLUME 93.8 fl (81.0-99.0); MEAN CORPUSCULAR HGB 30.4 pg (27.0-31.0); MEAN CORPUSCULAR HGB CONC 32.5 g/dl (33.0-37.0); MEAN PLATELET VOLUME 10.5 fl (9.6-12.3); MONO # 0.6 10*3/uL (0.1-1.0); MONO % 7.2 % (3.0-9.0); NEUT # 5.6 10*3/uL (2.3-7.9); NEUT % 64.6 % (47.0-73.0); PLATELET COUNT AUTOMATED 256 10*3/uL (130-400); RED BLOOD COUNT 4.04 10*6/uL (4.10-5.10); WHITE BLOOD COUNT 8.7 10*3/uL (4.8-10.8)
[2021-10-09 20:13] LABS: ALKALINE PHOSPHATASE 73 U/L (45-117); BUN 16 mg/dl (7-24); CHLORIDE 110 mmol/L (98-107); CREATININE 0.86 mg/dL (0.55-1.02); POTASSIUM 3.7 mmol/L (3.5-5.1); SGOT/AST 12 IU/L (3-35); SGPT/ALT 35 U/L (12-78); SODIUM 140 mmol/L (136-145); TOTAL PROTEIN 6.7 gm/dL (6.4-8.2)
== END 2021-10-09 21:30 | disposition home or self-care (01) ==
LOC: ED 18:30
PROVIDERS: Internal Medicine
DX: R07.9 Chest pain, unspecified (principal); Z88.1 Allergy status to other antibiotic agents; Z88.6 Allergy status to analgesic agent; Z79.899 Other long term (current) drug therapy; Z91.010 Allergy to peanuts; Z91.040 Latex allergy status; Z90.89 Acquired absence of other organs; Z90.49 Acquired absence of other specified parts of digestive tract; Z98.51 Tubal ligation status; Z98.890 Other specified postprocedural states

== ENCOUNTER 2022-03-21 17:53 | Emergency (ER) | payer OTHER ==
[~2022-03-21] VITALS: Wt 77.1 kg
[2022-03-21] MEDS ORDERED: KENALOG 0.1%80 GM T (19:53)
[2022-03-21] MEDS ORDERED: PREDNISONE20 M1 PO (19:53)
== END 2022-03-21 19:47 | disposition home or self-care (01) ==
LOC: ED 17:53
DX: L25.9 Unspecified contact dermatitis, unspecified cause (principal); Z88.1 Allergy status to other antibiotic agents; Z88.0 Allergy status to penicillin; Z88.8 Allergy status to other drugs, medicaments and biological substances; Z91.040 Latex allergy status; Z79.899 Other long term (current) drug therapy; Z90.49 Acquired absence of other specified parts of digestive tract; Z90.89 Acquired absence of other organs; Z98.51 Tubal ligation status; Z98.890 Other specified postprocedural states; Z87.891 Personal history of nicotine dependence

== ENCOUNTER 2022-04-18 19:20 | Emergency (ER) | payer OTHER ==
[~2022-04-18] VITALS: Ht 157.4 cm; Wt 77.1 kg
[~2022-04-18 19:20] MED LIST changes: +KENALOG 0.1%80 GM T
[2022-04-18] MEDS ORDERED: ZANAFLEX4 MG PO (19:28)
[2022-04-18] MEDS ORDERED: MEDROL DOSEPAK4 MG PO (21:39)
== END 2022-04-18 21:56 | disposition home or self-care (01) ==
LOC: ED 19:20
DX: S39.012A Strain of muscle, fascia and tendon of lower back, initial encounter (principal); M25.551 Pain in right hip; M25.552 Pain in left hip; R20.2 Paresthesia of skin; Z88.1 Allergy status to other antibiotic agents; Z88.6 Allergy status to analgesic agent; Z88.5 Allergy status to narcotic agent; Z88.8 Allergy status to other drugs, medicaments and biological substances; Z91.040 Latex allergy status; Z79.899 Other long term (current) drug therapy; Z90.49 Acquired absence of other specified parts of digestive tract; Z90.89 Acquired absence of other organs; Z98.890 Other specified postprocedural states; Z98.51 Tubal ligation status; W01.0XXA Fall on same level from slipping, tripping and stumbling without subsequent striking against object, initial encounter; Y93.66 Activity, soccer; Y92.322 Soccer field as the place of occurrence of the external cause; Y99.8 Other external cause status

== ENCOUNTER 2022-06-24 18:49 | Emergency (ER) | payer OTHER ==
[~2022-06-24] VITALS: Ht 157.4 cm; Wt 74.8 kg
[~2022-06-24 18:49] MED LIST changes: +MEDROL DOSEPAK4 MG PO; +ZANAFLEX4 MG PO
[2022-06-24 19:48] LABS: BASO # 0.1 10*3/uL (0.0-0.1); BASO % 0.8 % (0.0-1.0); EOS # 0.2 10*3/uL (0.0-0.4); EOS % 1.8 % (1.0-4.0); HEMATOCRIT 35.5 % (37.0-47.0); LYMPH # 2.1 10*3/uL (1.3-4.4); LYMPH % 22.7 % (27.0-41.0); MEAN CELL VOLUME 98.3 fl (81.0-99.0); MEAN CORPUSCULAR HGB 31.6 pg (27.0-31.0); MEAN CORPUSCULAR HGB CONC 32.1 g/dl (33.0-37.0); MEAN PLATELET VOLUME 9.7 fl (9.6-12.3); MONO # 0.7 10*3/uL (0.1-1.0); MONO % 7.5 % (3.0-9.0); NEUT # 6.1 10*3/uL (2.3-7.9); NEUT % 66.9 % (47.0-73.0); PLATELET COUNT AUTOMATED 287 10*3/uL (130-400); RED BLOOD COUNT 3.61 10*6/uL (4.10-5.10); RED CELL DISTRI WIDTH 13.2 % (0-14.5); WHITE BLOOD COUNT 9.1 10*3/uL (4.8-10.8)
[2022-06-24 20:04] LABS: BILIRUBIN Negative (Negative); BLOOD 2+ (Negative); CLARITY Clear (Clear); COLOR Yellow (Yellow); GLUCOSE Negative (Negative); KETONE Trace (Negative); LEUKO ESTERASE Negative (Negative); NITRITE Negative (Negative); SPECIFIC GRAVITY >= 1.030 (1.001-1.030)
[2022-06-24 20:06] LABS: ALKALINE PHOSPHATASE 56 U/L (45-117); BUN 20 mg/dl (7-24); CHLORIDE 111 mmol/L (98-107); CREATININE 0.74 mg/dL (0.55-1.02); LIPASE 175 U/L (73-393); POTASSIUM 3.8 mmol/L (3.5-5.1); SGPT/ALT 26 U/L (12-78); SODIUM 140 mmol/L (136-145); TOTAL PROTEIN 6.5 gm/dL (6.4-8.2)
[2022-06-24 20:47] LABS: BACTERIA TRACE; WBC 0-2 wbc/hpf (0-5)
[2022-06-24] MEDS ORDERED: MELOXICAM7.5 MG PO (21:14)
[2022-06-24] MEDS ORDERED: ONDANSETRON4 MG SL (21:14)
== END 2022-06-24 21:34 | disposition home or self-care (01) ==
LOC: ED 18:49
PROVIDERS: Physician Assistant
DX: N93.8 Other specified abnormal uterine and vaginal bleeding (principal); Z88.1 Allergy status to other antibiotic agents; Z88.8 Allergy status to other drugs, medicaments and biological substances; Z88.0 Allergy status to penicillin; Z91.040 Latex allergy status; Z79.899 Other long term (current) drug therapy; Z90.89 Acquired absence of other organs; Z98.890 Other specified postprocedural states; Z90.49 Acquired absence of other specified parts of digestive tract; Z98.51 Tubal ligation status; F17.200 Nicotine dependence, unspecified, uncomplicated

== ENCOUNTER 2022-06-30 22:16 | Emergency (ER) | payer OTHER ==
[~2022-06-30] VITALS: Ht 157.4 cm; Wt 91.6 kg
[~2022-06-30 22:16] MED LIST changes: +MELOXICAM7.5 MG PO; +ONDANSETRON4 MG SL
[2022-06-30 23:35] LABS: BASO % 0.5 % (0.0-1.0); EOS # 0.1 10*3/uL (0.0-0.4); EOS % 1.4 % (1.0-4.0); HEMATOCRIT 31.5 % (37.0-47.0); LYMPH % 23.7 % (27.0-41.0); MEAN CELL VOLUME 97.5 fl (81.0-99.0); MEAN CORPUSCULAR HGB 32.2 pg (27.0-31.0); MEAN PLATELET VOLUME 9.8 fl (9.6-12.3); MONO # 0.6 10*3/uL (0.1-1.0); MONO % 7.2 % (3.0-9.0); NEUT # 5.6 10*3/uL (2.3-7.9); PLATELET COUNT AUTOMATED 235 10*3/uL (130-400); RED BLOOD COUNT 3.23 10*6/uL (4.10-5.10); RED CELL DISTRI WIDTH 13.4 % (0-14.5); WHITE BLOOD COUNT 8.4 10*3/uL (4.8-10.8)
[2022-06-30 23:51] LABS: BUN 19 mg/dl (7-24); CHLORIDE 111 mmol/L (98-107); CREATININE 0.77 mg/dL (0.55-1.02); POTASSIUM 3.5 mmol/L (3.5-5.1); SODIUM 141 mmol/L (136-145)
== END 2022-07-01 00:05 | disposition home or self-care (01) ==
LOC: ED 22:16
PROVIDERS: Internal Medicine
DX: D25.9 Leiomyoma of uterus, unspecified (principal); N93.8 Other specified abnormal uterine and vaginal bleeding; Z88.1 Allergy status to other antibiotic agents; Z88.8 Allergy status to other drugs, medicaments and biological substances; Z91.040 Latex allergy status; Z79.899 Other long term (current) drug therapy; Z90.49 Acquired absence of other specified parts of digestive tract; Z98.51 Tubal ligation status; Z90.89 Acquired absence of other organs; Z98.890 Other specified postprocedural states; Z87.891 Personal history of nicotine dependence

== ENCOUNTER 2022-07-15 19:06 | Emergency (ER) | payer OTHER ==
[~2022-07-15] VITALS: Ht 157.4 cm; Wt 74.8 kg
[2022-07-15 20:10] LABS: BASO % 0.4 % (0.0-1.0); EOS # 0.2 10*3/uL (0.0-0.4); EOS % 1.8 % (1.0-4.0); HEMATOCRIT 38.5 % (37.0-47.0); LYMPH # 2.3 10*3/uL (1.3-4.4); LYMPH % 24.6 % (27.0-41.0); MEAN CELL VOLUME 98.2 fl (81.0-99.0); MEAN CORPUSCULAR HGB 31.1 pg (27.0-31.0); MEAN CORPUSCULAR HGB CONC 31.7 g/dl (33.0-37.0); MEAN PLATELET VOLUME 10.1 fl (9.6-12.3); MONO # 0.8 10*3/uL (0.1-1.0); PLATELET COUNT AUTOMATED 296 10*3/uL (130-400); RED BLOOD COUNT 3.92 10*6/uL (4.10-5.10); RED CELL DISTRI WIDTH 13.6 % (0-14.5); WHITE BLOOD COUNT 9.3 10*3/uL (4.8-10.8)
[2022-07-15 20:23] LABS: BUN 12 mg/dl (9-23); CHLORIDE 110 mmol/L (98-107); CREATININE 0.66 mg/dL (0.55-1.02); POTASSIUM 4.2 mmol/L (3.4-5.1); SODIUM 139 mmol/L (136-145)
[2022-07-15 20:29] LABS: BILIRUBIN Negative (Negative); BLOOD 3+ (Negative); CLARITY Turbid (Clear); COLOR Red (Yellow); GLUCOSE Negative (Negative); KETONE Negative (Negative); SPECIFIC GRAVITY 1.001 (1.001-1.030)
[2022-07-15 20:30] LABS: LEUKO ESTERASE Trace (Negative); NITRITE Negative (Negative); UROBILINOGEN 0.2 E.U./dl (0.0-1.0)
[2022-07-15 20:31] LABS: RBC TNTC rbc/hpf (0-2)
== END 2022-07-15 22:40 | disposition home or self-care (01) ==
LOC: ED 19:06
PROVIDERS: Internal Medicine
DX: N93.9 Abnormal uterine and vaginal bleeding, unspecified (principal); Z88.0 Allergy status to penicillin; Z88.8 Allergy status to other drugs, medicaments and biological substances; Z91.040 Latex allergy status; Z88.1 Allergy status to other antibiotic agents; Z91.010 Allergy to peanuts; Z79.899 Other long term (current) drug therapy; Z90.89 Acquired absence of other organs; Z90.49 Acquired absence of other specified parts of digestive tract; Z98.890 Other specified postprocedural states; Z98.51 Tubal ligation status; Z87.891 Personal history of nicotine dependence

== ENCOUNTER 2022-08-07 16:53 | Emergency (ER) | payer OTHER ==
[~2022-08-07] VITALS: Wt 74.8 kg
[2022-08-07 17:45] LABS: BASO # 0.1 10*3/uL (0.0-0.1); BASO % 0.7 % (0.0-1.0); EOS # 0.1 10*3/uL (0.0-0.4); EOS % 1.5 % (1.0-4.0); HEMATOCRIT 38.7 % (37.0-47.0); LYMPH # 2.1 10*3/uL (1.3-4.4); LYMPH % 24.2 % (27.0-41.0); MEAN CELL VOLUME 94.4 fl (81.0-99.0); MEAN CORPUSCULAR HGB CONC 31.8 g/dl (33.0-37.0); MEAN PLATELET VOLUME 9.3 fl (9.6-12.3); MONO # 0.7 10*3/uL (0.1-1.0); MONO % 8.6 % (3.0-9.0); NEUT # 5.5 10*3/uL (2.3-7.9); NEUT % 64.8 % (47.0-73.0); PLATELET COUNT AUTOMATED 349 10*3/uL (130-400); RED CELL DISTRI WIDTH 12.8 % (0-14.5); WHITE BLOOD COUNT 8.6 10*3/uL (4.8-10.8)
[2022-08-07 18:13] LABS: ALKALINE PHOSPHATASE 53 U/L (46-116); BUN 27 mg/dl (9-23); CHLORIDE 105 mmol/L (98-107); POTASSIUM 3.9 mmol/L (3.4-5.1); SGPT/ALT 25 U/L (10-49); TOTAL PROTEIN 7.7 gm/dL (6.0-8.0)
[2022-08-07 18:43] LABS: B-hCG (QUALITATIVE) NEGATIVE (NEGATIVE)
[2022-08-07 20:25] LABS: BILIRUBIN Negative (Negative); BLOOD 3+ (Negative); CLARITY Cloudy (Clear); COLOR Orange (Yellow); GLUCOSE Negative (Negative); KETONE 1+ (Negative); LEUKO ESTERASE Trace (Negative); NITRITE Negative (Negative); SPECIFIC GRAVITY >= 1.030 (1.001-1.030)
[2022-08-07 20:38] LABS: BACTERIA 3+; RBC TNTC rbc/hpf (0-2)
== END 2022-08-07 23:30 | disposition left against medical advice (07) ==
LOC: ED 16:53
PROVIDERS: Physician Assistant
DX: N93.9 Abnormal uterine and vaginal bleeding, unspecified (principal); R10.9 Unspecified abdominal pain; Z88.1 Allergy status to other antibiotic agents; Z88.8 Allergy status to other drugs, medicaments and biological substances; Z91.040 Latex allergy status; Z88.0 Allergy status to penicillin; Z91.010 Allergy to peanuts; Z79.899 Other long term (current) drug therapy; Z90.89 Acquired absence of other organs; Z98.890 Other specified postprocedural states; Z98.51 Tubal ligation status; Z90.49 Acquired absence of other specified parts of digestive tract

== ENCOUNTER → 2022-11-07 | Outpatient (CLI) | payer OTHER | END | disposition home or self-care (01) | LOC: LAB 17:02 | DX: R30.0 Dysuria (principal) ==

== ENCOUNTER 2023-02-10 18:52 | Emergency (ER) | payer OTHER ==
[~2023-02-10] VITALS: Ht 157.4 cm; Wt 69.9 kg
[2023-02-10] MEDS ORDERED: PREDNISONE20 M1 PO ×3 (19:26→19:47)
[2023-02-10] MEDS ORDERED: METHOCARBAMOL750 M1 PO ×3 (19:26→19:47)
[2023-02-10] MEDS ORDERED: OXYCODONE HCL10 M1 PO (19:28)
== END 2023-02-10 19:47 | disposition home or self-care (01) ==
LOC: ED 18:52
DX: M25.551 Pain in right hip (principal); G89.29 Other chronic pain; J45.909 Unspecified asthma, uncomplicated; G43.909 Migraine, unspecified, not intractable, without status migrainosus; Z88.1 Allergy status to other antibiotic agents; Z88.5 Allergy status to narcotic agent; Z88.0 Allergy status to penicillin; Z91.010 Allergy to peanuts; Z91.040 Latex allergy status; Z88.8 Allergy status to other drugs, medicaments and biological substances; Z91.018 Allergy to other foods; Z90.89 Acquired absence of other organs; Z90.49 Acquired absence of other specified parts of digestive tract; Z98.51 Tubal ligation status; Z98.890 Other specified postprocedural states; F17.200 Nicotine dependence, unspecified, uncomplicated; F12.90 Cannabis use, unspecified, uncomplicated

== ENCOUNTER 2023-03-19 10:22 | Emergency (ER) | payer OTHER ==
[~2023-03-19] VITALS: Wt 68.5 kg
[~2023-03-19 10:22] MED LIST changes: +METHOCARBAMOL750 M1 PO; +OXYCODONE HCL10 M1 PO
[2023-03-19] MEDS ORDERED: PREDNISONE50 MG PO (11:14)
== END 2023-03-19 11:03 | disposition home or self-care (01) ==
LOC: ED 10:22
DX: S76.011A Strain of muscle, fascia and tendon of right hip, initial encounter (principal); J45.909 Unspecified asthma, uncomplicated; G43.909 Migraine, unspecified, not intractable, without status migrainosus; Z88.1 Allergy status to other antibiotic agents; Z88.0 Allergy status to penicillin; Z88.5 Allergy status to narcotic agent; Z88.8 Allergy status to other drugs, medicaments and biological substances; Z91.010 Allergy to peanuts; Z91.040 Latex allergy status; Z90.49 Acquired absence of other specified parts of digestive tract; Z90.89 Acquired absence of other organs; Z98.51 Tubal ligation status; Z98.890 Other specified postprocedural states; F17.200 Nicotine dependence, unspecified, uncomplicated; X58.XXXA Exposure to other specified factors, initial encounter; Y93.89 Activity, other specified; Y92.89 Other specified places as the place of occurrence of the external cause; Y99.8 Other external cause status

== ENCOUNTER 2023-06-09 17:40 | Emergency (ER) | payer OTHER ==
[~2023-06-09] VITALS: Wt 81.6 kg
[2023-06-09] MEDS ORDERED: PREDNISONE50 MG PO (18:51)
[2023-06-09] MEDS ORDERED: NAPROSYN500 MG PO (18:51)
== END 2023-06-09 19:06 | disposition home or self-care (01) ==
LOC: ED 17:40
DX: M25.551 Pain in right hip (principal); J45.909 Unspecified asthma, uncomplicated; G43.909 Migraine, unspecified, not intractable, without status migrainosus; Z88.1 Allergy status to other antibiotic agents; Z88.5 Allergy status to narcotic agent; Z88.0 Allergy status to penicillin; Z88.8 Allergy status to other drugs, medicaments and biological substances; Z91.018 Allergy to other foods; Z91.040 Latex allergy status; Z91.010 Allergy to peanuts; Z90.89 Acquired absence of other organs; Z90.49 Acquired absence of other specified parts of digestive tract; Z98.51 Tubal ligation status; Z98.890 Other specified postprocedural states; F17.200 Nicotine dependence, unspecified, uncomplicated; F12.90 Cannabis use, unspecified, uncomplicated

== ENCOUNTER → 2023-06-23 | Emergency (ER) | payer OTHER | LOC: ED 20:25 | DX: M25.551 Pain in right hip (principal); Z53.21 Procedure and treatment not carried out due to patient leaving prior to being seen by health care provider ==

== ENCOUNTER 2024-02-05 17:59 | Emergency (ER) | payer OTHER ==
[~2024-02-05] VITALS: Ht 157.4 cm; Wt 72.6 kg
[2024-02-05] MEDS ORDERED: methylPREDNISolone sod succ 125 MG VIAL IM ONE (19:45)
[2024-02-05] MEDS ORDERED: PREDNISONE10 M1 PO (19:46)
== END 2024-02-05 20:07 | disposition home or self-care (01) ==
LOC: ED 17:59
DX: G89.29 Other chronic pain (principal); R10.2 Pelvic and perineal pain; F17.200 Nicotine dependence, unspecified, uncomplicated; Z90.710 Acquired absence of both cervix and uterus; Z88.1 Allergy status to other antibiotic agents; Z88.8 Allergy status to other drugs, medicaments and biological substances; Z88.0 Allergy status to penicillin; Z91.018 Allergy to other foods; Z88.5 Allergy status to narcotic agent; Z91.010 Allergy to peanuts; Z91.040 Latex allergy status; Z79.899 Other long term (current) drug therapy; Z90.89 Acquired absence of other organs; Z90.49 Acquired absence of other specified parts of digestive tract; Z98.890 Other specified postprocedural states; Z98.51 Tubal ligation status

== ENCOUNTER 2024-02-09 14:05 | Emergency (ER) | payer OTHER ==
[~2024-02-09] VITALS: Ht 157.4 cm; Wt 72.6 kg
[~2024-02-09 14:05] MED LIST changes: +PREDNISONE10 M1 PO
[2024-02-09] MEDS ORDERED: HYDROmorphONE Hydrochloride 0.5 MG/0.5 ML SYRINGE IM ONE (14:40)
[2024-02-09 14:48] LABS: BASO # 0.1 10*3/uL (0.0-0.1); BASO % 0.7 % (0.0-1.0); EOS # 0.3 10*3/uL (0.0-0.4); EOS % 4.4 % (1.0-4.0); HEMATOCRIT 37.6 % (37.0-47.0); LYMPH % 26.7 % (27.0-41.0); MEAN CORPUSCULAR HGB 29.2 pg (27.0-31.0); MEAN CORPUSCULAR HGB CONC 32.4 g/dl (33.0-37.0); MEAN PLATELET VOLUME 10.2 fl (9.6-12.3); MONO # 0.6 10*3/uL (0.1-1.0); MONO % 8.2 % (3.0-9.0); NEUT # 4.4 10*3/uL (2.3-7.9); NEUT % 59.7 % (47.0-73.0); PLATELET COUNT AUTOMATED 254 10*3/uL (130-400); RED BLOOD COUNT 4.18 10*6/uL (4.10-5.10); RED CELL DISTRI WIDTH 15.3 % (0-14.5); WHITE BLOOD COUNT 7.3 10*3/uL (4.8-10.8)
[2024-02-09 15:02] LABS: ALKALINE PHOSPHATASE 109 U/L (46-116); BUN 11 mg/dl (9-23); CHLORIDE 111 mmol/L (98-107); LIPASE 26 U/L (12-53); POTASSIUM 3.7 mmol/L (3.4-5.1); SGPT/ALT 37 U/L (5-49); TOTAL PROTEIN 6.5 gm/dL (6.0-8.0)
== END 2024-02-09 15:27 | disposition home or self-care (01) ==
LOC: ED 14:05
PROVIDERS: Physician Assistant Medical
DX: G89.29 Other chronic pain (principal); R10.2 Pelvic and perineal pain; J45.909 Unspecified asthma, uncomplicated; I10 Essential (primary) hypertension; F32.A Depression, unspecified; F41.9 Anxiety disorder, unspecified; G43.909 Migraine, unspecified, not intractable, without status migrainosus; F17.200 Nicotine dependence, unspecified, uncomplicated; F12.90 Cannabis use, unspecified, uncomplicated; Z90.710 Acquired absence of both cervix and uterus; Z88.1 Allergy status to other antibiotic agents; Z88.0 Allergy status to penicillin; Z88.5 Allergy status to narcotic agent; Z91.010 Allergy to peanuts; Z88.6 Allergy status to analgesic agent; Z91.040 Latex allergy status; Z91.018 Allergy to other foods; Z88.8 Allergy status to other drugs, medicaments and biological substances; Z90.49 Acquired absence of other specified parts of digestive tract; Z90.89 Acquired absence of other organs; Z98.51 Tubal ligation status; Z98.890 Other specified postprocedural states

== ENCOUNTER 2024-02-14 14:39 | Emergency (ER) | payer OTHER ==
[~2024-02-14] VITALS: Ht 157.4 cm; Wt 72.6 kg
[2024-02-14] MEDS ORDERED: MELOXICAM15 MG PO (15:03)
[2024-02-14] MEDS ORDERED: BUSPAR5 MG PO (15:04)
[2024-02-14] MEDS ORDERED: METHOCARBAMOL1000 MG PO (15:04)
[2024-02-14] MEDS ORDERED: ROXICODONE15 MG PO (15:05)
[2024-02-14 15:26] LABS: BASO # 0.1 10*3/uL (0.0-0.1); BASO % 0.5 % (0.0-1.0); EOS # 0.2 10*3/uL (0.0-0.4); EOS % 2.5 % (1.0-4.0); HEMATOCRIT 37.5 % (37.0-47.0); LYMPH # 2.3 10*3/uL (1.3-4.4); LYMPH % 24.9 % (27.0-41.0); MEAN CELL VOLUME 89.3 fl (81.0-99.0); MEAN CORPUSCULAR HGB CONC 32.5 g/dl (33.0-37.0); MEAN PLATELET VOLUME 10.1 fl (9.6-12.3); MONO # 0.6 10*3/uL (0.1-1.0); MONO % 6.7 % (3.0-9.0); NEUT % 65.2 % (47.0-73.0); PLATELET COUNT AUTOMATED 269 10*3/uL (130-400); RED CELL DISTRI WIDTH 15.9 % (0-14.5); WHITE BLOOD COUNT 9.2 10*3/uL (4.8-10.8)
[2024-02-14 15:47] LABS: BUN 13 mg/dl (9-23); CHLORIDE 111 mmol/L (98-107); POTASSIUM 3.7 mmol/L (3.4-5.1)
[2024-02-14] MEDS ORDERED: CIPRO500 MG PO (16:34)
[2024-02-14] MEDS ORDERED: Ciprofloxacin Hydrochloride 500 MG TAB PO ONE (16:35)
[2024-02-14 16:40] LABS: BILIRUBIN Negative (Negative); BLOOD Negative (Negative); CLARITY Clear (Clear); COLOR Yellow (Yellow); GLUCOSE Negative (Negative); KETONE Trace (Negative); LEUKO ESTERASE 1+ (Negative); NITRITE Negative (Negative); PH 5.5 (4.5-8.0); SPECIFIC GRAVITY >= 1.030 (1.001-1.030)
[2024-02-14 17:06] LABS: BACTERIA 2+; EPITHELIAL CELLS TNTC; WBC 21-30 wbc/hpf (0-5)
== END 2024-02-14 16:45 | disposition home or self-care (01) ==
LOC: ED 14:39
PROVIDERS: Internal Medicine; Nurse Practitioner Family
DX: N89.8 Other specified noninflammatory disorders of vagina (principal); R10.2 Pelvic and perineal pain; J45.909 Unspecified asthma, uncomplicated; G43.909 Migraine, unspecified, not intractable, without status migrainosus; F17.200 Nicotine dependence, unspecified, uncomplicated; F12.90 Cannabis use, unspecified, uncomplicated; Z88.1 Allergy status to other antibiotic agents; Z88.0 Allergy status to penicillin; Z88.8 Allergy status to other drugs, medicaments and biological substances; Z88.5 Allergy status to narcotic agent; Z91.010 Allergy to peanuts; Z88.6 Allergy status to analgesic agent; Z91.040 Latex allergy status; Z90.89 Acquired absence of other organs; Z90.49 Acquired absence of other specified parts of digestive tract; Z98.51 Tubal ligation status; Z98.890 Other specified postprocedural states

== ENCOUNTER 2024-02-19 15:59 | Emergency (ER) | payer OTHER ==
[~2024-02-19] VITALS: Ht 157.4 cm; Wt 72.6 kg
[~2024-02-19 15:59] MED LIST changes: +BUSPAR5 MG PO; +MELOXICAM15 MG PO; +METHOCARBAMOL1000 MG PO; +ROXICODONE15 MG PO
[2024-02-19] MEDS ORDERED: SODIUM CHLORIDE 0.9% 1,000 ML IV ONE (16:50)
[2024-02-19] MEDS ORDERED: HYDROmorphONE Hydrochloride 0.5 MG/0.5 ML SYRINGE IV ONE (16:50)
[2024-02-19 17:05] LABS: BASO # 0.1 10*3/uL (0.0-0.1); BASO % 0.6 % (0.0-1.0); EOS # 0.3 10*3/uL (0.0-0.4); EOS % 3.9 % (1.0-4.0); HEMATOCRIT 39.3 % (37.0-47.0); LYMPH # 1.7 10*3/uL (1.3-4.4); LYMPH % 21.4 % (27.0-41.0); MEAN CORPUSCULAR HGB 29.3 pg (27.0-31.0); MEAN CORPUSCULAR HGB CONC 31.8 g/dl (33.0-37.0); MEAN PLATELET VOLUME 10.2 fl (9.6-12.3); MONO # 0.5 10*3/uL (0.1-1.0); MONO % 6.8 % (3.0-9.0); NEUT # 5.3 10*3/uL (2.3-7.9); PLATELET COUNT AUTOMATED 248 10*3/uL (130-400); RED BLOOD COUNT 4.27 10*6/uL (4.10-5.10); RED CELL DISTRI WIDTH 15.7 % (0-14.5); WHITE BLOOD COUNT 7.9 10*3/uL (4.8-10.8)
[2024-02-19 17:22] LABS: ALKALINE PHOSPHATASE 121 U/L (46-116); BUN 16 mg/dl (9-23); CHLORIDE 110 mmol/L (98-107); LIPASE 35 U/L (12-53); POTASSIUM 4.3 mmol/L (3.4-5.1); SGPT/ALT 35 U/L (5-49); TOTAL PROTEIN 6.8 gm/dL (6.0-8.0)
[2024-02-19 17:36] LABS: BILIRUBIN Negative (Negative); BLOOD Negative (Negative); CLARITY Cloudy (Clear); COLOR Yellow (Yellow); GLUCOSE Negative (Negative); KETONE Trace (Negative); LEUKO ESTERASE 2+ (Negative); NITRITE Negative (Negative); SPECIFIC GRAVITY >= 1.030 (1.001-1.030)
[2024-02-19 17:45] LABS: EPITHELIAL CELLS TNTC; WBC TNTC wbc/hpf (0-5)
[2024-02-19] MEDS ORDERED: IOHEXOL 300 MG/ML 100 ML VIAL IV ONE (17:45)
[2024-02-19 17:47] LABS: BACTERIA 1+
[2024-02-19] MEDS ORDERED: HYDROmorphONE Hydrochloride 1 MG/ML SYR IV ONE (17:50)
[2024-02-19] MEDS ORDERED: METRONIDAZOLE500 M1 PO (19:51)
[2024-02-19] MEDS ORDERED: METRONIDAZOLE 500 MG TAB PO ONE (19:55)
[2024-02-19] MEDS ORDERED: OXYCODONE HCL (IR) 5 MG TAB PO ONE (19:55)
== END 2024-02-19 20:10 | disposition home or self-care (01) ==
LOC: ED 15:59
PROVIDERS: Nurse Practitioner Family
DX: A59.9 Trichomoniasis, unspecified (principal); R10.2 Pelvic and perineal pain; I10 Essential (primary) hypertension; J45.909 Unspecified asthma, uncomplicated; E66.9 Obesity, unspecified; F17.200 Nicotine dependence, unspecified, uncomplicated; Z88.1 Allergy status to other antibiotic agents; Z88.6 Allergy status to analgesic agent; Z88.0 Allergy status to penicillin; Z91.018 Allergy to other foods; Z91.010 Allergy to peanuts; Z91.040 Latex allergy status; Z79.899 Other long term (current) drug therapy; Z68.30 Body mass index [BMI] 30.0-30.9, adult; Z90.89 Acquired absence of other organs; Z90.49 Acquired absence of other specified parts of digestive tract; Z98.51 Tubal ligation status

== ENCOUNTER → 2024-07-01 | Outpatient (CLI) | payer OTHER ==
[~2024-07-01] MED LIST changes: +METRONIDAZOLE500 M1 PO
== END | disposition home or self-care (01) ==
LOC: CT 11:00
PROVIDERS: ATTEND Physician Assistant
DX: J32.0 Chronic maxillary sinusitis (principal)

== ENCOUNTER 2024-10-05 15:39 | Emergency (ER) | payer OTHER ==
[~2024-10-05] VITALS: Ht 157.4 cm; Wt 70.3 kg
[2024-10-05] MEDS ORDERED: FEXOFENADINE H180 M1 PO (15:51)
[2024-10-05] MEDS ORDERED: FLUTICASONE PRO15 GM INH (15:52)
[2024-10-05] MEDS ORDERED: PREDNISONE20 M1 PO (17:49)
[2024-10-05] MEDS ORDERED: methylPREDNISolone sod succ 125 MG VIAL IM ONE (17:50)
== END 2024-10-05 18:01 | disposition home or self-care (01) ==
LOC: ED 15:39
DX: S46.911A Strain of unspecified muscle, fascia and tendon at shoulder and upper arm level, right arm, initial encounter (principal); J45.909 Unspecified asthma, uncomplicated; E78.00 Pure hypercholesterolemia, unspecified; D64.9 Anemia, unspecified; F32.A Depression, unspecified; I10 Essential (primary) hypertension; G43.909 Migraine, unspecified, not intractable, without status migrainosus; F17.200 Nicotine dependence, unspecified, uncomplicated; F12.90 Cannabis use, unspecified, uncomplicated; Z88.1 Allergy status to other antibiotic agents; Z88.5 Allergy status to narcotic agent; Z88.0 Allergy status to penicillin; Z91.018 Allergy to other foods; Z91.040 Latex allergy status; Z91.010 Allergy to peanuts; Z90.89 Acquired absence of other organs; Z90.49 Acquired absence of other specified parts of digestive tract; Z98.51 Tubal ligation status; Z98.890 Other specified postprocedural states; X58.XXXA Exposure to other specified factors, initial encounter; Y93.89 Activity, other specified; Y92.89 Other specified places as the place of occurrence of the external cause; Y99.8 Other external cause status

== ENCOUNTER 2025-02-10 20:12 | Emergency (ER) | payer OTHER ==
[~2025-02-10] VITALS: Wt 70.3 kg
[~2025-02-10 20:12] MED LIST changes: -GADOTERATE MEGLUMINE 5 MMOL/10 ML VIAL IV ONE; -IOHEXOL 240 MG/ML 20 ML SOL IJ ONE; -IOHEXOL 240 MG/ML 20 ML SOL ONE; -Lidocaine Hydrochloride 5 ML AMP IJ ONE; -Lidocaine Hydrochloride 5 ML AMP ONE; -SODIUM BICARBONATE 4.2% 5 ML VIAL IJ ONE; -SODIUM BICARBONATE 4.2% 5 ML VIAL ONE
[2025-02-10] MEDS ORDERED: Meloxicam 15 MG TAB PO ONE (21:40)
[2025-02-10] MEDS ORDERED: Ondansetron Hydrochloride 4 MG TAB PO ONE (21:40)
== END 2025-02-10 23:15 | disposition home or self-care (01) ==
LOC: ED 20:12
DX: G89.18 Other acute postprocedural pain (principal); M25.551 Pain in right hip; J45.909 Unspecified asthma, uncomplicated; F12.90 Cannabis use, unspecified, uncomplicated; F17.200 Nicotine dependence, unspecified, uncomplicated; Z79.899 Other long term (current) drug therapy; Z88.0 Allergy status to penicillin; Z88.1 Allergy status to other antibiotic agents; Z88.6 Allergy status to analgesic agent; Z88.5 Allergy status to narcotic agent; Z88.8 Allergy status to other drugs, medicaments and biological substances; Z91.040 Latex allergy status; Z91.010 Allergy to peanuts; Z91.014 Allergy to mammalian meats; Z90.49 Acquired absence of other specified parts of digestive tract; Z90.89 Acquired absence of other organs; Z98.51 Tubal ligation status; Z98.890 Other specified postprocedural states

== ENCOUNTER → 2025-02-10 | Outpatient (CLI) | payer OTHER ==
[~2025-02-10] MED LIST changes: +FEXOFENADINE H180 M1 PO; +FLUTICASONE PRO15 GM INH; +GADOTERATE MEGLUMINE 5 MMOL/10 ML VIAL IV ONE; +IOHEXOL 240 MG/ML 20 ML SOL IJ ONE; +IOHEXOL 240 MG/ML 20 ML SOL ONE; +Lidocaine Hydrochloride 5 ML AMP IJ ONE; +Lidocaine Hydrochloride 5 ML AMP ONE; +SODIUM BICARBONATE 4.2% 5 ML VIAL IJ ONE; +SODIUM BICARBONATE 4.2% 5 ML VIAL ONE
== END | disposition home or self-care (01) ==
LOC: MRI 11:00
PROVIDERS: ATTEND Orthopaedic Surgery
DX: S73.191A Other sprain of right hip, initial encounter (principal); M25.851 Other specified joint disorders, right hip; M25.551 Pain in right hip; M25.831 Other specified joint disorders, right wrist; X50.1XXA Overexertion from prolonged static or awkward postures, initial encounter; Y93.89 Activity, other specified; Y92.89 Other specified places as the place of occurrence of the external cause; Y99.8 Other external cause status